=== PATIENT | male | born 1960 | race Hispanic/Latino ===

== ENCOUNTER 2019-08-21 17:14 | Outpatient (CLI) | payer OTHER, SELFPAY ==
[2019-08-21 17:59] LABS: Cholesterol 106 mg/dL (0-200); HDL Direct 36 mg/dL; Triglycerides 103 mg/dL (<150)
[2019-08-21 18:10] LABS: LDL Cholesterol Direct 53 mg/dL
== END 2019-08-21 17:15 | disposition home or self-care (01) ==
PROVIDERS: PCP Family Medicine; Visit Provider Internal Medicine
DX: I25.118 Atherosclerotic heart disease of native coronary artery with other forms of angina pectoris (principal)
CPT/HCPCS: 36415; 80061

== ENCOUNTER 2020-04-11 10:41 | Outpatient (CLI) | payer OTHER, SELFPAY ==
[2020-04-11 11:34] LABS: Basophils Absolute Auto 0.1 K/mm3 (0.0-0.1); Basophils Percent Auto 0.7 % (0.2-1.2); Eosinophils Absolute Auto 0.1 K/mm3 (0-0.3); Eosinophils Percent Auto 0.8 % (0-4.4); Hematocrit 49.9 % (42.0-52.0); Hemoglobin 17.3 g/dL (14.0-18.0); Immature Granulocyte Absolute 0.06 K/mm3 (0.00-0.031); Immature Granulocyte Percent A 0.7 % (0-0.5); Lymphocytes Percent Auto 24.1 % (18.3-44.2); Mean Corpuscular HGB Conc 34.7 g/dl (32-36); Mean Corpuscular Hemoglobin 31.8 pg (26-34); Mean Corpuscular Volume 91.7 fl (80-100); Mean Platelet Volume 10.3 fl (7.4-10.4); Monocytes Absolute Auto 0.7 K/mm3 (0.1-0.6); Monocytes Percent Auto 7.6 % (2.6-8.5); Neutrophils Absolute Auto 5.8 K/mm3 (1.3-6.7); Neutrophils Percent Auto 66.1 % (45.5-73.1); Platelet Count Result 238 k/mm3 (150-375); Red Blood Count 5.44 M/mm3 (4.6-6.20); Red Cell Distribution Width 11.8 % (11.5-14.5); White Blood Count 8.7 K/mm3 (4.5-10.0)
[2020-04-11 11:50] LABS: Alanine Aminotransferase 35 U/L (4-50); Albumin Level 4.6 g/dL (3.5-5.1); Alkaline Phosphatase 95 U/L (38-126); Anion Gap 9 mmol/L (8-16); Aspartate Amino Transferase 31 U/L (17-59); Bilirubin,Total 0.7 mg/dL (0.2-1.3); Blood Urea Nitrogen 13 mg/dL (9-20); Calcium 9.3 mg/dL (8.4-10.2); Carbon Dioxide 28 mmol/L (22-30); Chloride 100 mmol/L (98-107); Estimated Glomerular Filt Rate > 60; Glucose 344 mg/dL (75-110); Potassium 4.2 mmol/L (3.4-5.0); Sodium 137 mmol/L (137-145)
[2020-04-11 11:51] LABS: Hemoglobin A1C 12.6 % (<5.7)
== END 2020-04-11 10:42 | disposition home or self-care (01) ==
PROVIDERS: PCP Family Medicine; Visit Provider Physician Assistant
DX: I10 Essential (primary) hypertension (principal); E11.65 Type 2 diabetes mellitus with hyperglycemia; Z79.4 Long term (current) use of insulin; R53.83 Other fatigue
CPT/HCPCS: 36415; 80053; 83036; 84443; 85025

== ENCOUNTER 2020-09-06 12:30 | Outpatient (CLI) | payer OTHER, SELFPAY ==
[2020-09-06 13:16] LABS: Anion Gap 13 mmol/L (8-16); Blood Urea Nitrogen 8 mg/dL (9-20); Calcium 8.9 mg/dL (8.4-10.2); Carbon Dioxide 21 mmol/L (22-30); Chloride 100 mmol/L (98-107); Estimated Glomerular Filt Rate > 60; Glucose 480 mg/dL (75-110); Potassium 3.4 mmol/L (3.4-5.0); Sodium 134 mmol/L (137-145)
== END 2020-09-06 12:31 | disposition home or self-care (01) ==
PROVIDERS: PCP Family Medicine
DX: E11.59 Type 2 diabetes mellitus with other circulatory complications (principal); I10 Essential (primary) hypertension
CPT/HCPCS: 36415; 80048

== ENCOUNTER 2021-04-11 16:08 | Outpatient (CLI) | payer OTHER, SELFPAY ==
[2021-04-11 16:51] LABS: Basophils Absolute Auto 0.1 K/mm3 (0.0-0.1); Basophils Percent Auto 0.9 % (0.2-1.2); Eosinophils Absolute Auto 0.1 K/mm3 (0-0.3); Eosinophils Percent Auto 1.5 % (0-4.4); Hematocrit 41.4 % (42.0-52.0); Hemoglobin 14.1 g/dL (14.0-18.0); Immature Granulocyte Absolute 0.07 K/mm3 (0.00-0.031); Immature Granulocyte Percent A 0.9 % (0-0.5); Lymphocytes Absolute Auto 2.42 K/mm3 (0.9-3.2); Lymphocytes Percent Auto 30.2 % (18.3-44.2); Mean Corpuscular HGB Conc 34.1 g/dl (32-36); Mean Corpuscular Hemoglobin 32.2 pg (26-34); Mean Corpuscular Volume 94.5 fl (80-100); Mean Platelet Volume 9.9 fl (7.4-10.4); Monocytes Absolute Auto 0.6 K/mm3 (0.1-0.6); Neutrophils Absolute Auto 4.7 K/mm3 (1.3-6.7); Neutrophils Percent Auto 58.5 % (45.5-73.1); Platelet Count Result 333 k/mm3 (150-375); Red Blood Count 4.38 M/mm3 (4.6-6.20); Red Cell Distribution Width 12.3 % (11.5-14.5)
[2021-04-11 16:55] LABS: Add Urine Microscopic? YES; Appearance Urine Clear (Clear); Bilirubin Urine Negative (Negative); Blood Urine Negative (Negative); Color Urine Colorless (Yellow); Glucose Urine UA 3+ mg/dL (Negative); Ketones Urine Negative (Negative); Leukocyte Esterase Ur Negative LEU/UL (Negative); Nitrate Urine Negative (Negative); Protein Urine Negative (Negative); RBC Urine 0-2 /hpf (0-2); Specific Grav Ur 1.035 (1.001-1.035); Urobilinogen Urine Negative mg/dL (<2.0); WBC Urine 0-3 /hpf
[2021-04-11 17:05] LABS: Alanine Aminotransferase 24 U/L (4-50); Albumin Level 4.2 g/dL (3.5-5.1); Alkaline Phosphatase 104 U/L (38-126); Anion Gap 9 mmol/L (8-16); Aspartate Amino Transferase 30 U/L (17-59); Bilirubin,Total 0.5 mg/dL (0.2-1.3); Blood Urea Nitrogen 17 mg/dL (9-20); Calcium 9.2 mg/dL (8.4-10.2); Carbon Dioxide 22 mmol/L (22-30); Chloride 104 mmol/L (98-107); Estimated Glomerular Filt Rate > 60; Glucose 313 mg/dL (65-110); Potassium 3.8 mmol/L (3.4-5.0); Sodium 135 mmol/L (137-145)
[2021-04-11 17:18] LABS: Creatinine Urine 29.2 mg/dL
[2021-04-11 17:23] LABS: MALB Creatinine Ratio 34.9 mg/g (0-30); Microalbumin Urine Random 10.2 mg/L (0-16.7)
[2021-04-11 19:23] LABS: Hemoglobin A1C > 14.0 % (<5.7)
== END 2021-04-11 16:09 | disposition home or self-care (01) ==
LOC: ANHLAB 16:12
PROVIDERS: PCP Family Medicine; Visit Provider Family Medicine
DX: E03.9 Hypothyroidism, unspecified (principal); I10 Essential (primary) hypertension; E11.9 Type 2 diabetes mellitus without complications; R10.9 Unspecified abdominal pain
CPT/HCPCS: 36415; 80053; 81001; 82043; 83036; 84443; 85025

== ENCOUNTER 2024-04-30 10:15 | Emergency (ER) | payer OTHER, SELFPAY ==
[2024-04-30] VITALS (9 sets, daily range): BP systolic 123–163; BP diastolic 56–93; PULSE 81–105; RESP 16–21; TEMP 36.4; O2SAT 93–100
--- NOTE | ~2024-04-30 | CT_ITS ---
EXAMINATION: CTA abd aorta runoff DATE: 04/30/2024 12:54 INDICATION: Peripheral arterial disease. TECHNIQUE: Computed tomographic angiography (CTA) of the abdominal, pelvis, and both lower extremitie s was performed with 150 mL Omnipaque-350 intravenous contrast. Automated exposure control and iterat elyse reconstruction technique were employed. The dose-length product was 634.19 mGy-cm. Maximum intens ity projection 3D-reconstructions of the arteries were created by the technologist on a separate work station. COMPARISON: CTA 10/16/16 FINDINGS: ABDOMINAL AORTA AND ITS BRANCHES: Aortic atherosclerosis is noted. There is moderate stenosis of celiac axis. There is no significant s tenosis of superior mesenteric artery or the renal arteries. There is total occlusion of proximal inf erior mesenteric artery. PELVIC VASCULATURE: There is no significant stenosis of right common iliac artery. There is moderate stenosis of right in ternal iliac artery and mild stenosis of external iliac artery. There is no significant stenosis of l eft common iliac artery. There is severe stenosis of proximal left internal iliac artery. There is mo derate stenosis of proximal left external iliac artery. RIGHT LOWER EXTREMITY VASCULATURE: There is severe stenosis of right common femoral artery and mild stenosis of the profunda femoral art simone. There is total occlusion of superficial femoral artery including multiple occluded stents. There is reconstitution of flow in above-knee popliteal artery which demonstrates mild stenosis. There is no significant stenosis of the tibioperoneal trunk, peroneal artery, or anterior or posterior tibial arteries. LEFT LOWER EXTREMITY VASCULATURE: There is moderate stenosis of left common femoral artery and mild stenosis of the profunda femoral ar chelsey. There is total occlusion of superficial femoral artery with reconstitution of flow in above-kne e popliteal artery, which demonstrates mild stenosis. There is no significant stenosis of the tibiope roneal trunk, peroneal artery, or anterior or posterior tibial arteries. ADDITIONAL FINDINGS: The visualized portions of lung bases demonstrate mild atelectasis. No pleural effusion. Cardiomegaly is noted. No pericardial effusion. Median sternotomy wires are noted. The liver, gallbladder, spleen , pancreas, adrenal glands, and right kidney are normal. There is focal cortical thinning of left kid jose miguel. There are no dilated loops of bowel. The appendix is normal. There are no pathologically enlarge d lymph nodes. There is no free intraperitoneal fluid. There is mild lumbar spondylosis. IMPRESSION: 1. 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 No significan t stenosis of superior mesenteric artery. 2. Severe stenosis of right common femoral artery. 3. Total occlusion of right superficial femoral artery. 4. Moderate stenosis of proximal left internal iliac artery. 5. Moderate stenosis of left common femoral artery. 6. Total occlusion of left superficial femoral artery. Reviewed, dictated and finalized at location A. [facility] IMPRESSION: 1. 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 No significant stenosis of superior mesenteric artery. 2. Severe stenosis of right common femoral artery. 3. Total occlusion of right superficial femoral artery. 4. Moderate stenosis of proximal left internal iliac artery. 5. Moderate stenosis of left common femoral artery. 6. Total occlusion of left superficial femoral artery.
--- OUTSIDE RECORDS SUMMARY | 2024-04-30 10:31 | XMS_ITS | Encounter Summary ---
Author Organization [facility] Facility Care Team Providers Care Cabinet Professional Name Role Phone No, Physician Primary Care Provider [phone] Oscar Pacheco MD Unavailable [phone] Chanell Paula MD Primary Care Provider Encounter Details Date Type Department Care Team (Latest Contact Info) Description 06/10/2017 Orders Only [facility]INCON[facility] ProviderTodd MD [address] [place] [id number] Social History Tobacco Use Types Packs/Day Years Used Date Smoking Tobacco: Never Assessed Alcohol Use Standard Drinks/Week Comments Yes 0 (1 standard drink = 0.6 oz pur e alcohol) Sex and Gender Information Value Date Recorded Sex Assigned at Not on file 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 Historical Provider Final Res ult documented in this encounter Visit Diagnoses Not on filedocumented in this encounter Care Teams Cabinet Professional Relationship Specialty Start Date End Date No, Physician PCP - General 07/23/17 12/15/17 Chanell Paula MD [address] [facility] [address] [place] [address] PCP - General Family Medicine 12/16/17 Oscar Pacheco MD Consulting Physician Cardiology 12/16/17 documented as of this encounter
--- OUTSIDE RECORDS SUMMARY | 2024-04-30 10:31 | XMS_ITS | Encounter Summary ---
Author Organization [facility] Facility Care Team Providers Care Moisture Meter Operator Name Role Phone No, Physician Primary Care Provider [phone] Oscar Pacheco MD Unavailable [phone] Chanell Paula MD Primary Care Provider Encounter Details Date Type Department Care Team (Latest Contact Info) Description 10/06/2015 Orders Only [facility] CLINCONV ProviderTodd MD [address] [place] [address] Social History Tobacco Use Types Packs/Day Years Used Date Smoking Tobacco: Never Assessed Alcohol Use Standard Drinks/Week Comments Yes 0 (1 standard drink = 0.6 oz pur e alcohol) Sex and Gender Information Value Date Recorded Sex Assigned at Not on file 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 Historical Provider Final Res ult documented in this encounter Visit Diagnoses Not on filedocumented in this encounter Care Teams Moisture Meter Operator Relationship Specialty Start Date End Date No, Physician PCP - General 07/23/17 12/15/17 Chanell Paula MD [address] [facility] [address] [place] [address] PCP - General Family Medicine 12/16/17 Oscar Pacheco MD Consulting Physician Cardiology 12/16/17 documented as of this encounter
--- OUTSIDE RECORDS SUMMARY | 2024-04-30 10:31 | XMS_ITS | Encounter Summary ---
Author Organization [facility] Address [facility] [place] [address] Care Team Providers Care Storage Specialist Name Role Phone Nakita Johnston MD Primary Care Provider [phone] Reason for Referral * Surgical (Routine) - Closed Specialty Diagnoses / Procedures Referred By Contac t Referred To Contact Diagnoses PVD (peripheral vascular disease) ([facility]) Procedures Case request operating room: ENDARTERECTOMY FEMORAL ARTERY (right leg) Yash Costello MD [facility]. [facility] [address] [place] [address] Phone: tel: fax: Referral ID Status Reason Start Date Expiration Date Visits Re quested Visits Authorized [id number] Closed 11/26/2022 11/27/2023 1 1 Encounter Details Date Type Department Care Team (Late st Contact Info) Description 11/26/2022 Prep for Procedure [facility], [facility] [address] [place], [place] [id number] Yash Costello MD [facility]. [facility] [address] [place] [address] Social History Tobacco Use Types Packs/Day Years Used Date Smoking Tobacco: Former Cigarettes Q uit: 2017 Smokeless Tobacco: Never Alcohol Use Standard Drinks/Week Comments Not Currently 0 (1 standard drink = 0.6 oz pur e alcohol) Humiliation, Afraid, Rape, and Kick questionnair e Answer Date Recorded Within the last year, have y ou been afraid of your partner or ex-partner? No 07/26/2022 Within the last year, have y ou been humiliated or emotionally abused in other ways by your partner or ex-partner? No Within the last year, have y ou been kicked, hit, slapped, or otherwise physically hurt by your partner or ex-partner? No 07/26/2022 Within the last year, have y ou been raped or forced to have any kind of sexual activity by your partner or ex-partner? No 07/26/2022 Overall Financial Resource Strain (CARDIA) Answe r Date Recorded How hard is it for you to pa y for the very basics like food, housing, medical care, and heating? Not hard at all 07/26/2022 Hunger Vital Sign Answer Date Recorded Within the past 12 months, y ou worried that your food would run out before you got the money to buy more. Never true 07/27/19 23 Within the past 12 months, t he food you bought just didn't last and you didn't have money to get more. Never true 07/26/2022 PRAPARE - Transportation Answer Date Re corded In the past 12 months, has l ack of transportation kept you from medical appointments or from getting medications? No 07/09 In the past 12 months, has l ack of transportation kept you from meetings, work, or from getting things needed for daily living? No 07/26/2022 Housing Stability Vital Sign Answer Jose e Recorded In the last 12 months, was t here a time when you were not able to pay the mortgage or rent on time? No 07/26/2022 In the last 12 months, how many places have you lived? 1 07/26/2022 In the last 12 months, was t here a time when you did not have a steady place to sleep or slept in a fpc (including now)? No 07/26/2022 Sex and Gender Information Value Date Recorded Sex Assigned at Not on file Legal Sex Male 9:57 AM CDT Gender Identity Not on file Sexual Orientation Not on file documented as of this encounter Functional Status * Are you deaf or do you have serious difficulty hearing Answer Date of Assessment Author Status No 07/26/2022 6:08 PM CDT Gabbie Bowen R N Active * Are you blind or do you have serious difficulty seeing, even when wearing glasses? Answer Date of Assessment Author Status No 07/26/2022 6:08 PM CDT Gabbie Bowen R N Active * Do you have serious difficulty walking or climbing stairs? Answer Date of Assessment Author Status No 07/26/2022 6:08 PM CDT Gabbie Bowen R N Active * Do you have difficulty dressing or bathing? Answer Date of Assessment Author Status No 07/26/2022 6:08 PM CDT Gabbie Bowen R N Active * Because of a physical, mental, or emotional condition, do you have difficulty doing errands alone such as visiting a doctor's office or shopping? Answer Date of Assessment Author Status No 07/26/2022 6:08 PM CDT Gabbie Bowen R N Active documented as of this encounter Mental Status * Because of a physical, mental, or emotional condition, do you have serious difficulty concentrating, remembering, or making decisions? Answer Entry Date Author Status No 07/26/2022 6:08 PM CDT Gabbie Bowen R N Active documented in this encounter Plan of Treatment Scheduled Orders Name Type Priority Associated Diagnoses Order Schedule Case request operating room: ENDARTERECTOMY FEMORAL ARTERY (right leg) Case Request Routine PVD (peripheral vascular disease) Once for 1 Occurrences starting 11/26/2022 until 11/26/2022 documented as of this encounter Goals Goal Patient Goal Type Associated Problems Recent Progress Patient-Stated? Author Patient will return to prior living situation and remain independent in ADLs upon discharge from hospital Lifestyle No Flores Arguelles RN documented as of this encounter Results * TYPE & SCREEN (12/14/2022 2:57 PM CDT) ABO/RH O POSITIVE 12/14/2022 4:22 PM CDT [facility] ANTIBODY SCREEN NEGATIVE 12/14/2022 4:22 PM CDT [facility] SAMPLE EXPIRATION 12/27/2022,2 359 12/24/2022 7:33 AM CDT [facility] BB COMMENT NO HISTORY OF TRANSFUSIONS , OR ANTIBODIES, NEW SPECIMEN NOT NEEDED 12/24/2022 7:33 AM CDT [facility] 12/14/2022 2:57 PM CDT Yash Costello MD BLOOD BANK TEST ORDERABLES Final Result [facility] [address] [place] [address], * (ABNORMAL) COMPREHENSIVE METABOLIC PANEL (12/14/2022 2:57 PM CDT) GLUCOSE 289(H) 70 - 99 MG/DL 12/14/2022 3:42 PM CDT [facility] BUN 16 7 - 18 MG/DL 12/14/2022 3:42 PM CDT [facility] CREATININE S/P/B 1.00 0.7 - 1.3 MG/DL 12/14/2022 3:42 PM CDT [facility] SODIUM S/P/B 135(L) 136 - 145 MMOL/L 12/14/2022 3:42 PM CDT [facility] POTASSIUM S/P/B 3.6 3.5 - 5.1 MMOL/L 12/14/2022 3:42 PM CDT [facility] CHLORIDE S/P/B 104 100 - 108 MMOL/L 12/14/2022 3:42 PM CDT [facility] CO2 25.6 21 - 32 MMOL/L 12/14/2022 3:42 PM CDT [facility] CALCIUM S/P/B 8.4(L) 8.5 - 10.1 MG/DL 12/14/2022 3:42 PM T [facility] BILIRUBIN TOTAL S/P/B 1.4(H) 0.2 - 1.2 MG/DL 12/14/2022 3:42 PM [facility] Comment: THIS ASSAY IS NOT RECOMMENDED FOR PATIENTS UNDERGOING TREATMENT WITH ELTROMBOPAG DUE TO THE POTENTIAL FOR FALSELY ELEVATED RESULTS. TOTAL PROTEIN S/P/B 6.9 6.4 - 8.2 G/DL 12/14/2022 3:42 PM T [facility] ALBUMIN S/P/B 3.6 3.4 - 5.0 G/DL 12/14/2022 3:42 PM T [facility] AST 18 15 - 37 U/L 12/14/2022 3:42 PM [facility] ALT 27 16 - 60 U/L 12/14/2022 3:42 PM [facility] ALKALINE PHOSPHATASE S/P/B 71 50 - 136 U/L 12/14/2022 3:42 PM [facility] ANION GAP 5.4 5 - 15 MMOL/L 12/14/2022 3:42 PM [facility] BUN CREATININE RATIO 16.0 6 - 26 12/14/2022 3:42 PM [facility] A/G RATIO 1.1 1.0 - 2.0 RATIO 12/14/2022 3:42 PM [facility] GFR ESTIMATE 85(L) >90 ML/MIN/1.7 3 M2 12/14/2022 3:42 PM [facility] Comment: NOTE: eGFR is not calculated for patients <18 years of age. This is an estimated GFR calculation using the new CKD EPI creatinine equation without race and so does not require a correction factor for race. This estimated GFR should not be used for calculating drug doses. 12/14/2022 2:57 PM CDT Yash Costello MD LABORATORY Final Result [facility] [address] [place] [address], [place] [phone] * PROTIME/INR, VENOUS (12/14/2022 2:57 PM CDT) PROTIME 11.2 10.2 - 12.9 SEC 12/14/2022 3:45 PM CDT [facility] INR 1.0 12/14/2022 3:45 PM CDT [facility] Comment: Recommended INR Therapeutic Goals: 2.0-3.0 Routine Therapy 2.5-3.5 Mechanical Prosthetic Valves (High Risk) 12/14/2022 2:57 PM CDT Yash Costello MD LABORATORY Final Result Performing Organization Address City/[facility]/ZIP Co de Phone Number [facility] [address] [place] [address], [place] [phone] * CBC W/DIFF AUTOMATED (12/14/2022 2:57 PM CDT) WBC 6.9 4.5 - 11.0 x10'3/uL 12/14/2022 3:22 PM CDT [facility] RBC 5.00 4.70 - 6.10 x10'6/uL 12/14/2022 3:22 PM CDT [facility] HGB 15.5 14.0 - 18.0 G/DL 12/14/2022 3:22 PM CDT [facility] HCT 46.1 43.0 - 54.0 % 12/14/2022 3:22 PM CDT [facility] MCV 92.2 80.0 - 94.0 FL 12/14/2022 3:22 PM CDT [facility] MCH 31.0 27.0 - 31.0 PG 12/14/2022 3:22 PM CDT [facility] MCHC 33.6 32.0 - 36.0 G/DL 12/14/2022 3:22 PM CDT [facility] RDW 12.5 11.5 - 14.5 % 12/14/2022 3:22 PM CDT [facility] PLT 231 130 - 400 x10'3/uL 12/14/2022 3:22 PM CDT [facility] MPV 10.0 9.3 - 12.2 FL 12/14/2022 3:22 PM CDT [facility] DIFFERENTIAL TYPE AUTOMATED DIFFERENTIAL 12/14/2022 3:22 PM CDT [facility] NEUTROPHILS % 67.4 % 12/14/2022 3:22 PM CDT [facility] LYMPHOCYTES % 22.7 % 12/14/2022 3:22 PM CDT [facility] MONOCYTES % 6.3 % 12/14/2022 3:22 PM CDT [facility] EOSINOPHILS 2.5 % 12/14/2022 3:22 PM CDT [facility] BASOPHILS 0.7 % 12/14/2022 3:22 PM CDT [facility] IMMATURE GRANS % 0.4 % 12/15/19 3:22 PM CDT [facility] ABS. NEUTROPHILS TOTAL 4.67 1.80 - 7.70 x10'3/uL 12/14/2022 3:22 PM CDT [facility] ABS. LYMPHOCYTES 1.57 1.00 - 4.80 x10'3/uL 12/14/2022 3:22 PM CDT [facility] ABS. MONOCYTES 0.44 0.30 - 0.82 x10'3/uL 12/14/2022 3:22 PM CDT [facility] ABS. EOSINOPHILS 0.17 0.04 - 0.54 x10'3/uL 12/14/2022 3:22 PM CDT [facility] ABS. BASOPHILS 0.05 0.01 - 0.08 x10'3/uL 12/14/2022 3:22 PM CDT [facility] ABS. IMMATURE GRANULOCYTES 0.03 0.00 - 0.49 x10'3/uL 12/14/2022 3:22 PM CDT [facility] 12/14/2022 2:57 PM CDT us Yash Costello MD LABORATORY Final Result [facility] [address] [place] [address], [place] [phone] * MRSA SCREENING (12/14/2022 2:56 PM CDT) SPEC DESCRIPTION NASAL 12/14/2022 2:32 PM CDT [facility] SPECIAL REQUESTS NO SPECIAL REQUEST 12/14/2022 2:32 PM CDT [facility] CULTURE RESULT NO METHICILLIN RESISTANT STAPHYLOCOCCUS AUREUS ISOLATED 12/15/2022 1:22 PM CDT [facility] SPECIMEN FROM INTERNAL NOSE / Unknown 12/14/2022 2:56 PM CDT 12/14/2022 2:57 PM CDT us Yash Costello MD MICROBIOLOGY - GENERAL ORDERABLE S Final Result [facility] [address] [place] [address], documented in this encounter Visit Diagnoses Diagnosis PVD (peripheral vascular disease) (CMS/HCC)- Primary Peripheral vascular disease, unspecified documented in this encounter Care Teams Storage Specialist Relationship Specialty Start Date End Date Nakita Johnston MD [address] [place] [address] [place] [address] PCP - General FAMILY PRACTICE 07/07/21 documented as of this encounter
--- OUTSIDE RECORDS SUMMARY | 2024-04-30 10:31 | XMS_ITS | Referral Summary ---
Author Organization [facility] Address [facility] [place] [address] Care Team Providers Care Near East Archeology Professor Name Role Phone Oscar Pacheco MD Unavailable [phone] Chanell Paula MD Primary Care Provider Allergies No known active allergies Medications rosuvastatin (CRESTOR) 40 mg tablet Take 1 tablet (40 mg total) by mouth nightly. 30 tablet 1 07/26/2017 Active aspirin 81 mg tablet Take 1 tablet (81 mg total) by mouth daily. 30 tablet 2 07/27/2017 Active JENTADUETO XR 5-1,000 mg tablet, IR & ER, biphasic 24hr TAKE 1 TABLET BY ORAL ROUTE EVERY DAY WITH A MEAL 0 08/08/2018 Active Jardiance 25 mg tablet Take 25 mg by mouth daily 05/23/2020 Active insulin lispro (HumaLOG, ADMELOG) 100 unit/mL vial for injection Inject under the skin 3 (three) times a day before meals Active alirocumab 75 mg/mL pen injector Inject 75 mg under the skin every 14 (fourteen) days 2 Syringe 11 06/16/2020 Active metoprolol XL (TOPROL-XL) 100 mg 24 hr tablet TAKE 1 TABLET(100 MG) BY MOUTH DAILY 90 tablet 2 08/29/2020 Active lisinopriL (PRINIVIL,ZESTRI L) 40 mg tablet TAKE 1 TABLET(40 MG) BY MOUTH DAILY 90 tablet 2 08/29/2020 Active Active Problems Problem Noted Date Diagnosed Date Coronary artery disease of n ative artery of [place] heart with stable angina pectoris 08/19/2017 Overview (08/19/2017): Coronary Artery Disease Type 2 diabetes mellitus wit h circulatory disorder, without long-term current use of insulin 08/19/2017 Hyperlipidemia due to type 2 diabetes mellitus 0 08/19/2017 Ischemic cardiomyopathy 08/19/2017 Hypertension associated with diabetes 08/19/2017 PAD (peripheral artery disease) 08/19/2017 History of myocardial infarction 06/17/2017 Social History Tobacco Use Types Packs/Day Years Used Date Smoking Tobacco: Never Smokeless Tobacco: Never Alcohol Use Standard Drinks/Week Comments Yes 0 (1 standard drink = 0.6 oz pur e alcohol) Sex and Gender Information Value Date Recorded Sex Assigned at Not on file 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 Gender Identity Not on file Sexual Orientation Not on file Last Filed Vital Signs Vital Sign Reading Time Taken Comments Blood Pressure 128/62 06/06/2020 2:10 PM CDT Pulse 71 06/06/2020 2:10 PM CDT Temperature 36.4 C (97.5 F) 07/26/2017 8:40 AM CDT Respiratory Rate 18 07/26/2017 8:40 AM CDT Oxygen Saturation 95% 06/06/2020 2:10 PM CDT Inhaled Oxygen Concentration - - Weight 83.6 kg (184 lb 3.2 oz) 06/06/2020 2:10 P M CDT Height 167.6 cm (5' 6 ) 06/06/2020 2:10 PM CDT Body Mass Index 29.73 06/06/2020 2:10 PM CDT Plan of Treatment Not on file Medical Devices Implanted Type Area Senior Quality Manager Device Identifier Shelf Expiration Date Model / Serial / Lot System Coronary Stent Resolute [place] Pebax [employer]x Zotarolimus Eluting Burt L38 Mm L140 Cm Od.91-.69 Mm Id2.5 Mm Small Vessel Rapid Exchange Radiopaque 1 Access Port Balloon Accepts .014 In Guidewire 5 Fr Guide Catheter - [id number] Implanted:Qty: 1 on 07/25/2017 by Cameron Torrez MD at [facility] [employer] X 04/26/2019 [id number] X / / [id number] System Coronary Stent Resolute [place] Pebax Biolinx Zotarolimus Eluting Burt L30 Mm L140 Cm Od.91-.69 Mm Id2.25 Mm Small Vessel Rapid Exchange Radiopaque 1 Access Port Balloon Accepts .014 In Guidewire 5 Fr Guide Catheter - [id number] Implanted:Qty: 1 on 07/25/2017 by Cameron Torrez MD at [facility] [employer] X 12/18/2019 [id number] X / / [id number] System Coronary Stent Resolute [place] Pebax Biolinx Zotarolimus Eluting Burt L15 Mm L140 Cm Od.91-.69 Mm Id2.75 Mm Medium Vessel Rapid Exchange Radiopaque 1 Access Port Balloon Accepts .014 In Guidewire 5 Fr Guide Catheter - [id number] Implanted:Qty: 1 on 07/25/2017 by Cameron Torrez MD at [facility] [employer] X 02/04/2019 [id number] X / / [id number] System Coronary Stent Resolute [place] Pebax Bi[employer]x Zotarolimus Eluting Burt L15 Mm L140 Cm Od.91-.69 Mm Id2.5 Mm Small Vessel Rapid Exchange Radiopaque 1 Access Port Balloon Accepts .014 In Guidewire 5 Fr Guide Catheter - [id number] Implanted:Qty: 1 on 07/25/2017 by Cameron Torrez MD at [facility] [employer] X 03/22/2019 [id number] X / / [id number] Procedures Procedure Name Priority Date/Time Associated Diagnosis Comments POCT LIPID PANEL Routine 06/06/2020 2:38 PM CDT Coronary artery disease of [place] artery of [place] heart with stable angina pectoris (CMS/HCC) EGFR Routine 09/01/2018 11:14 AM CDT PVC (premature ventricular contraction) from Last 3 Months or Most Recently Relevant to Health Maintenance Results * POCT lipid panel (06/06/2020 2:38 PM CDT) [facility] Signature Cholesterol, POC 164 mg/dL HDL, POC 32 mg/dL Triglycerides, POC 238 mg/dL LDL Cholesterol POC 84 mg/dL Chol/HDL Ratio, POC 5.1 Non-HDL Cholesterol, POC 132 mg/dL Cholesterol Total, POC 164 mg/dL Capillary blood 06/06/2020 2 :38 PM CDT Oscar Pacheco MD POINT OF CARE TEST ORDERAB LES Final Result * eGFR (09/01/2018 11:14 AM CDT) eGFR 99 mL/min/1.7 3 m2 [facility] Comment: Interpretive Data Reference Interval Normal >/= 90 mL/min/1.73m2 Mildly decreased* 60 - 89 mL/min/1.73m2 Mildly to moderately decreased 45 - 59 mL/min/1.73m2 Moderately to severely decreased 30 - 44 mL/min/1.73m2 Severely decreased 15 - 29 mL/min/1.73m2 Kidney Failure < 15 mL/min/1.73m2 *Relative to young adult level If -[place] multiply value by 1.16. Estimated glomerular filtration rate is determined by the CKD-EPI equation recommended by the National Kidney Foundation (KDIGO 2012 Clinical Practice Guideline for the Evaluation and Management of Chronic Kidney Disease. Kidney Intnl Suppl Mar 2012;3:1). The CKD-EPI equation should not be used for patients with unstable renal function and has not been validated in children and those over 70. Current interpretive data was last reviewed 2016. Blood specimen (specimen) 09/01/2018 11:14 AM CDT 09/01/2018 11:26 AM CDT Oscar Pacheco MD LAB BLOOD ORDERABLES Final Result [facility] [address] [place] [address] from Last 3 Months or Most Recently Relevant to Health Maintenance Insurance [facility]PPO Address: [address] [address] [address] [facility] H[facility]/PPO Address: [facility] [address] [facility]PP[facility] Address: [address] [facility] HMO/PPO Address: [facility] [address] [place] [address] Advance Directives For more information, please contact: [phone] Documents on File Type Date Recorded Patient Body Line Finisher Expl anation ADVANCE DIRECTIVE 08/19/2017 1:44 PM Power of Driveway Sealer ADVANCE DIRECTIVE 06/25/2017 12:00 AM REBEKA R OF PLASTIC MIXER FINANCIAL/MEDICAL * Full Code (Latest Code Status on File) Date Activated Date Inactivated Comments 07/24/2017 2:16 AM 07/26/2017 3:45 PM Care Teams Near East Archeology Professor Relationship Specialty Start Date End Date Chanell Paula MD [address] [facility] [address] [place] [address] PCP - General Family Medicine 12/16/17 Oscar Pacheco MD Consulting Physician Cardiology 12/16/17
--- OUTSIDE RECORDS SUMMARY | 2024-04-30 10:31 | XMS_ITS | Clinical Summary ---
[facility] Address [facility] [place] [address] Care Team Providers Care Log Yard Derrick Operator Name Role Phone Oscar Pacheco MD Unavailable [phone] Chanell Paula MD Primary Care Provider Allergies [...] artery disease of n ative artery of [place] heart with stable angina pectoris 08/19/2017 Overview (08/19/2017): Coronary Artery Disease Type 2 diabetes mellitus wit h circulatory disorder, without long-term current use of insulin 08/19/2017 Hyperlipidemia due to type 2 diabetes mellitus 0 08/19/2017 Ischemic cardiomyopathy 08/19/2017 Hypertension associated with diabetes 08/19/2017 PAD (peripheral artery disease) 08/19/2017 History of myocardial infarction 06/17/2017 Surgical History Surgery Date Site/Laterality Comments CORONARY ARTERY BYPASS GRAFT 03/11/2002 - 03/10/2003 Coronary Artery Bypass Graft CARDIAC STENT PLACEMENT Medical History Medical History Date Comments Chronic coronary artery disease Coronary Artery Disease DMII (diabetes mellitus, type 2) (HCC) High cholesterol Family History Medical History Relation Name Comments Diabetes Father Heart disease Father Heart disease Mother Relation Name Status Comments Father Mother Social History Tobacco Use Types Packs/Day Years Used Date Smoking Tobacco: Never Smokeless Tobacco: Never Alcohol Use Standard Drinks/Week Comments Yes 0 (1 standard drink = 0.6 oz pur e alcohol) Sex and Gender Information Value Date Recorded Sex Assigned at Not on file Legal Sex Male 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 Gender Identity Not on file Sexual Orientation Not on file Obstetrics History Last Filed Vital Signs Vital Sign Reading [...] 06/06/2020 2:10 PM CDT Plan of Treatment Health Maintenance Due Date Last Done Comments Albumin Creatinine Ratio, Urine 1959 Colon Cancer Screening-Colonoscopy 1959 Depression Screening 1959 Hemoglobin A1C 1959 Hepatitis C Screening 1959 Prostate Cancer Screening-PSA 1959 Dilated Eye Exam 1959 Foot Exam 1959 DTaP/Tdap/Td Vaccine (1 - Tdap) 08/27/1970 Hepatitis B Screening 08/27/1977 Regular Well Visit/Exam 18-64 08/27/1977 Pneumococcal vaccine <65 (1 of 2 - PCV) 08/27/1978 Zoster Vaccine (1 of 2) 08/27/2009 eGFR 09/02/2019 09/01/2018, 10/0 10/2017, 07/26/2017, Additional history exists Lipid Panel 11/08/2022 11/08/2021, 03/2 11/2020, 08/21/2019, Additional history exists Covid-19 Vaccine (3 - 2023-2 5 season) 2023 06/01/2020, 05/12/2020 Influenza Vaccine (#1) 2023 04/08/2016 Medical Devices Implanted Type Area Patient Observation Assistant Device Identifier Shelf Expiration Date Model / Serial / Lot System Coronary Stent Resolute Gianni Pebax Biolinx Zotarolimus Eluting [place] L38 Mm L140 Cm Od.91-.69 Mm Id2.5 Mm Small Vessel Rapid Exchange Radiopaque 1 Access Port Balloon Accepts .014 In Guidewire 5 Fr Guide Catheter - [id number] Implanted:Qty: 1 on 07/25/2017 by Cameron Torrez MD at [facility] [employer] X 04/26/2019 [id number] X / / [id number] System Coronary Stent Resolute [place] Pebax Biolinx Zotarolimus Eluting Linwood L30 Mm L140 Cm Od.91-.69 Mm Id2.25 Mm Small Vessel Rapid Exchange Radiopaque 1 Access Port Balloon Accepts .014 In Guidewire 5 Fr Guide Catheter - [id number] Implanted:Qty: 1 on 07/25/2017 by Cameron Torrez MD at [facility] [employer] X 12/18/2019 [id number] X / / [id number] System Coronary Stent Resolute Gianni Pebax Biolinx Zotarolimus Eluting Linwood L15 Mm L140 Cm Od.91-.69 Mm Id2.75 Mm Medium Vessel Rapid Exchange Radiopaque 1 Access Port Balloon Accepts .014 In Guidewire 5 Fr Guide Catheter - [id number] Implanted:Qty: 1 on 07/25/2017 by Cameron Torrez MD at [facility] [employer] X 02/04/2019 [id number] X / / [id number] System Coronary Stent Resolute [place] Pebax [employer]olinx Zotarolimus Eluting Linwood L15 Mm L140 Cm Od.91-.69 Mm Id2.5 Mm Small Vessel Rapid Exchange Radiopaque 1 Access Port Balloon Accepts .014 In Guidewire 5 Fr Guide Catheter - [id number] Implanted:Qty: 1 on 07/25/2017 by Cameron Torrez MD at [facility] [employer] X 03/22/2019 [id number] X / / [id number] Procedures Procedure Name Priority Date/Time Associated Diagnosis Comments POCT LIPID PANEL Routine 06/06/2020 2:38 PM CDT Coronary artery disease of [place] artery of [place] heart with stable angina pectoris (CMS/HCC) EGFR Routine 09/01/2018 11:14 AM CDT PVC (premature ventricular contraction) from Last 3 Months or Most Recently Relevant to Health Maintenance Results * POCT lipid panel (06/06/2020 2:38 PM CDT) [facility] Cholesterol, POC 164 mg/dL HDL, POC 32 mg/dL Triglycerides, POC 238 mg/dL LDL Cholesterol POC 84 mg/dL Chol/HDL Ratio, POC 5.1 Non-HDL Cholesterol, POC 132 mg/dL Cholesterol Total, POC 164 mg/dL Capillary blood 06/06/2020 2 :38 PM CDT us Oscar Pacheco MD POINT OF CARE TEST ORDERAB LES Final Result * eGFR (09/01/2018 11:14 AM CDT) [facility] eGFR 99 mL/min/1.7 3 m2 [facility] Comment: Interpretive Data Reference Interval Normal >/= 90 mL/min/1.73m2 Mildly decreased* 60 - 89 mL/min/1.73m2 Mildly to moderately decreased 45 - 59 mL/min/1.73m2 Moderately to severely decreased 30 - 44 mL/min/1.73m2 Severely decreased 15 - 29 mL/min/1.73m2 Kidney Failure < 15 mL/min/1.73m2 *Relative to young adult level If -[place]ozamb[place] multiply value by 1.16. Estimated glomerular filtration [...] 11:14 AM CDT 09/01/2018 11:26 AM CDT us Oscar Pacheco MD LAB BLOOD ORDERABLES Final Result Performing Organization Address City/State/[facility] Co de Phone Number [facility] [address] [place] [address] from Last 3 Months or Most Recently Relevant to Health Maintenance Insurance [facility] HMO/PPO Address: [facility] [address] [place] [address] UHC CHOICE PLUS [facility] HMO/PPO Address: [address] [facility] HMO/PPO Address: [address] [place] [id number] [facility] HMO/PPO Address: [address] [address] [place] [address] Advance Directives For more information, please contact: [phone] Documents on File Type Date Recorded Patient Kitchen Assistant Expl anation ADVANCE DIRECTIVE 08/19/2017 1:44 PM Power of Architect Internship ADVANCE DIRECTIVE 06/25/2017 12:00 AM REBEKA R OF EXECUTIVE ASSISTANT FINANCIAL/MEDICAL * Full Code (Latest Code Status on File) Date Activated Date Inactivated Comments 07/24/2017 2:16 AM 07/26/2017 3:45 PM Care Teams Log Yard Derrick Operator Relationship Specialty Start Date End Date Chanell Paula MD [address] [facility] [address] [place] [address] PCP - General Family Medicine 12/16/17 Oscar Pacheco MD Consulting Physician Cardiology 12/16/17
--- OUTSIDE RECORDS SUMMARY | 2024-04-30 10:31 | XMS_ITS | Encounter Summary ---
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 Historical Provider [facility]ON Final Result documented in this encounter Visit Diagnoses Not on filedocumented in this encounter Care Teams Leather Skinner Relationship Specialty Start Date End Date No, Physician PCP - General 07/23/17 12/15/17 Chanell Paula MD [address] [facility] [address] [place] [address] PCP - General Family Medicine 12/16/17 Oscar Pacheco MD Consulting Physician Cardiology 12/16/17 documented as of this encounter
--- OUTSIDE RECORDS SUMMARY | 2024-04-30 10:31 | XMS_ITS | Encounter Summary ---
Author Organization [facility] Address [facility] [place] [address] Care Team Providers Care Property Appraiser Name Role Phone Nakita Johnston MD Primary Care Provider [phone] Encounter Details Date Type Department Care Team (Late st Contact Info) Description 11/14/2021 [facility], [address] [address] Kendall Dooley MA Social History Tobacco Use Types Packs/Day Years [...] on file Sexual Orientation Not on file COVID-19 Exposure Response Date Recorded In the last 10 days, have yo u been in contact with someone who was confirmed or suspected to have Coronavirus/COVID-19? No / Unsure 11/08/2021 9:40 AM CDT documented as of this encounter Plan of Treatment Not on file documented as of this encounter Procedures Procedure Name Priority Date/Time Associated Diagnosis Comments CBC (OUTSIDE LAB) Routine 07/05/2021 BASIC METABOLIC PANEL Routine 07/05/2021 LIPID PANEL Routine 07/05/2021 HEPATIC FUNCTION PANEL Routine 07/05/2021 HEMOGLOBIN, GLYCOSYLATED Routine 07/05/2021 documented in this encounter Results * CBC (OUTSIDE LAB) (07/05/2021) Pathologist [facility] WBC 6.7 HGB 16.7 HCT 50.4 PLT 333 07/05/2021 us Doc [facility] Abstract LAB-OUTSIDE/ABSTRACTED Final Result * HEPATIC FUNCTION PANEL (07/05/2021) Pathologist [facility] ALBUMIN S/P/B 4.5 3.5 - 5.0 ALKALINE PHOSPHATASE S/P/B 113 ALT 29 AST 31 BILIRUBIN DIRECT S/P/B 0.00 BILIRUBIN TOTAL S/P/B 0.60 TOTAL PROTEIN S/P/B 7.8 GLOBULIN 3.3 07/05/2021 us Doc [facility] Abstract LABORATORY Final Result * LIPID PANEL (07/05/2021) Pathologist [facility] CHOLESTEROL 210 HDL 44 TRIGLYCERIDES 311 LDL (CALCULATED) 104 07/05/2021 us Doc [facility] Abstract LABORATORY Final Result * (ABNORMAL) BASIC METABOLIC PANEL (07/05/2021) Pathologist [facility] SODIUM S/P/B 133 POTASSIUM S/P/B 4.4 CO2 23 CHLORIDE S/P/B 98 GLUCOSE 330 mg/dL CALCIUM S/P/B 9.6 BUN 16 CREATININE S/P/B 0.69(A) 0.7 - 1.3 EGFR NON-AFR. AMER. >60 <=90 07/05/2021 us Doc [facility] Abstract LABORATORY Final Result * HEMOGLOBIN, GLYCOSYLATED (07/05/2021) Pathologist [facility] HGB A1C 13.9 % 07/05/2021 us Doc [facility] Abstract LABORATORY Final Result documented in this encounter Visit Diagnoses Not on filedocumented in this encounter Care Teams Property Appraiser Relationship Specialty Start Date End Date Nakita Johnston MD [address] [place] [address] [place] [address] PCP - General FAMILY PRACTICE 07/07/21 documented as of this encounter
--- OUTSIDE RECORDS SUMMARY | 2024-04-30 10:31 | XMS_ITS | Clinical Summary ---
Author Organization [facility] Address [address] [place] [address] Care Team Providers Care Resource Room Teacher Name Role Phone Nakita Johnston MD Primary Care Provider [phone] Allergies No known active allergies Medications JARDIANCE 25 MG tablet Take 1 tablet (25 mg total) by mouth daily. 10/12/2021 Active JENTADUETO XR 5-1000 MG TABLET SR 24 HR Take 1 tablet by mouth daily. 07/07/2021 Active lisinopril (PRINIVIL) 40 MG tablet Take 1 tablet (40 mg total) by mouth daily. 10/23/2021 Active metoprolol succinate ER (TOPROL-XL) 100 MG 24 hr tablet Take 1 tablet (100 mg total) by mouth daily. 04/30/2021 Active rosuvastatin (CRESTOR) 40 MG tablet Take 1 tablet (40 mg total) by mouth nightly at bedtime. 10/12/2021 Active glipiZIDE XL (GLUCOTROL XL) 10 MG 24 hr tablet Take 1 tablet (10 mg total) by mouth daily. 05/22/2022 Active HYDROcodone-viraj taminophen (NORCO) 5-325 MG tabletIndicatio ns:Acute Pain < 7 Day Supply Take 1 tablet by mouth every 6 (six) hours as needed for Pain. Indications: Acute Pain < 7 Day Supply 20 tablet 12/31/2022 Active clopidogrel (PLAVIX) 75 MG tablet Take 1 tablet by mouth once daily 90 tablet 04/03/2023 Active Active Problems Problem Noted Date Diagnosed Date PVD (peripheral vascular disease) 07/26/2022 Hyperlipidemia due to type 2 diabetes mellitus ([facility]) 08/19/2017 Ischemic cardiomyopathy 08/19/2017 History of myocardial infarction 06/17/2017 Peripheral vascular disease Hypertensive disorder Coronary arteriosclerosis Hyperlipidemia Immunizations Name Administration Dates Next Due Influenza Adult (Generic) 04/08/2016 PFIZER COVID-19 (ORIGINAL FO RMULATION, PURPLE CAP) mRNA, LNP-S, PF, 30 MCG/0.3 ML DOSE 06/01/2020,05/12/2020 Family History Medical History Relation Comments Diabetes Brother Diabetes Father Heart Disease Father Hypertension Father Diabetes Sister Relation Status Comments Brother Father Sister Social History Tobacco Use Types Packs/Day Years Used Date Smoking Tobacco: Former Cigarettes Q uit: 2017 Smokeless Tobacco: Never Tobacco Cessation:Counseling Given: Not Answered Alcohol Use Standard Drinks/Week Comments Not Currently 0 (1 standard drink = 0.6 oz pur e alcohol) Humiliation, Afraid, Rape, and Kick questionnair e Answer Date Recorded Within the last year, have y ou been afraid of your partner or ex-partner? Patient declined 12/24/2022 Within the last year, have y ou been humiliated or emotionally abused in other ways by your partner or ex-partner? Patient declined 12/24/2022 Within the last year, have y ou been kicked, hit, slapped, or otherwise physically hurt by your partner or ex-partner? Patient declined 12/24/2022 Within the last year, have y ou been raped or forced to have any kind of sexual activity by your partner or ex-partner? Patient declined 12/24/2022 Social Connection and Isolation Panel [NHANES] A nswer Date Recorded In a typical week, how many times do you talk on the phone with family, friends, or neighbors? Patient declined 12/24/2022 How often do you get togethe r with friends or relatives? Patient declined 12/24/2022 How often do you attend tenriism or yarsanism serv ices? Patient declined 12/24/2022 Do you belong to any clubs o r organizations such as tenriism groups, unions, fraternal or athletic groups, or school groups? Patient declined 12/24/2022 How often do you attend meet ings of the clubs or organizations you belong to? Patient declined 12/24/2022 Are you , , di vorced, , never , or living with a partner? Patient declined 12/24/2022 AUDIT-C Answer Date Recorded Q1: How often do you have a drink containing alc ohol? Patient declined 12/24/2022 Q2: How many drinks containi ng alcohol do you have on a typical day when you are drinking? Patient declined 12/24/2022 Q3: How often do you have si x or more drinks on one occasion? Patient declined 12/24/2022 Overall Financial Resource Strain (CARDIA) Answe r Date Recorded How hard is it for you to pa y for the very basics like food, housing, medical care, and heating? Patient declined 12/24/2022 [facility] - Occupational Stress Questionnaire Answer Date Recorded Do you feel stress - tense, restless, nervous, or anxious, or unable to sleep at night because your mind is troubled all the time - these days? Patient declined 12/24/2022 Exercise Vital Sign Answer Date Recorde d Days of Exercise per Week Not on file 2022 On average, how many minutes do you engage in exercise at this level? Patient declined 12/24/2022 Hunger Vital Sign Answer Date Recorded Within the past 12 months, y ou worried that your food would run out before you got the money to buy more. Patient declined Within the past 12 months, t he food you bought just didn't last and you didn't have money to get more. Patient declined PRAPARE - Transportation Answer Date Re corded In the past 12 months, has l ack of transportation kept you from medical appointments or from getting medications? Patient declined 12/24/2022 In the past 12 months, has l ack of transportation kept you from meetings, work, or from getting things needed for daily living? Patient declined 12/24/2022 Housing Stability Vital Sign Answer Jose e Recorded In the last 12 months, was t here a time when you were not able to pay the mortgage or rent on time? Patient refused 12/25/19 23 In the last 12 months, how many places have you lived? 1 12/24/2022 In the last 12 months, was t here a time when you did not have a steady place to sleep or slept in a chcf (including now)? Patient refused 12/24/2022 Sex and Gender Information Value Date Recorded Sex Assigned at Not on file Legal Sex Male 9:57 AM CDT Gender Identity Not on file Sexual Orientation Not on file Last Filed Vital Signs Vital Sign Reading Time Taken Comments Blood Pressure 138/79 05/09/2023 7:23 AM SALES SERVICE REPRESENTATIVE Pulse 92 05/09/2023 7:23 AM SALES SERVICE REPRESENTATIVE Temperature 36.9 C (98.4 F) 05/09/2023 7:23 AM SALES SERVICE REPRESENTATIVE Respiratory Rate 17 05/09/2023 7:23 AM SALES SERVICE REPRESENTATIVE Oxygen Saturation 98% 05/09/2023 7:23 AM SALES SERVICE REPRESENTATIVE Inhaled Oxygen Concentration - - Weight 77.1 kg (170 lb) 05/09/2023 7:23 AM SALES SERVICE REPRESENTATIVE Height 170.2 cm (5' 7 ) 05/09/2023 7:23 AM SALES SERVICE REPRESENTATIVE Body Mass Index 26.63 05/09/2023 7:23 AM SALES SERVICE REPRESENTATIVE Plan of Treatment Health Maintenance Due Date Last Done Comments ASCVD Statin 1960 Colorectal Cancer Screening Colonoscopy (10 Years) 1959 Kidney Health Evaluation 1959 Annual Physical 08/27/1962 Pneumococcal Vaccine: Pediatrics (0 to 5 Years) and At-Risk Patients (6 to 64 Years) (1 of 2 - PCV) 08/27/1965 Diabetes: Retinopathy Eye Exam 08/27/1977 Hepatitis C 08/27/1977 DTaP, Tdap and Td Vaccines (1 - Tdap) 08/27/1978 Zoster Vaccines (1 of 2) 08/27/2009 RSV Immunization or 60+ Years (1 - Risk 60-74 years 1-dose series) 2019 Hemoglobin A1C 10/27/2022 07/27/2022, 08/3 03/2021, 07/05/2021 ASCVD LDL 11/08/2022 11/08/2021, 07/05/2021 Lipid Panel 11/08/2022 11/08/2021, 04/2 09/2021, 06/06/2020, Additional history exists COVID-19 Vaccine ( season) 2023 06/01/2020, 05/12/2020 Influenza Adult (#1) 2023 04/08/2016 Meningococcal B Vaccine Aged Out No l onger eligible based on patient's age to complete this topic Meningococcal Vaccine Aged Out No evelia martin eligible based on patient's age to complete this topic RSV Immunizations Under 20 Months Aged Out No longer eligible based on patient's age to complete this topic Goals Goal Patient Goal Type Associated Problems Recent Progress Patient-Stated? Author Patient will return to prior living situation and remain independent in ADLs upon discharge from hospital Lifestyle No Flores Arguelles RN Medical Devices Implanted Type Area Federal Judge Device Identifier Shelf Expiration Date Model / Serial / Lot Patch Nasima. Vasc. Vascu-Guard 0.8cm X 8cm - [id number] Implanted:Qty: 1 on 12/24/2022 by Yash Costello MD at [facility] [employer] Mesh Right: Groin Seesmic - BIOSCIENCE 07/19/2023 [id number] / [id number] Description:Right femoral ar chelsey vascular repair patch Procedures Procedure Name Priority Date/Time Associated Diagnosis Comments HEMOGLOBIN, GLYCOSYLATED Routine 07/27/2022 7:27 AM CDT LIPID PANEL Routine 11/08/2021 11:14 AM CDT Peripheral vascular disease Ischemic cardiomyopathy Hyperlipidemia Hyperlipidemia due to type 2 diabetes mellitus ([facility]) from Last 3 Months or Most Recently Relevant to Health Maintenance Results * (ABNORMAL) HEMOGLOBIN, GLYCOSYLATED (07/27/2022 7:27 AM CDT) HGB A1C 11.7(H) <5.7 % 07/27/2022 10:19 AM CDT [facility] Comment: ADA GUIDELINES 2010 5.7 TO 6.4% INCREASED RISK OF DIABETES > OR = 6.5% CONSISTENT WITH DIABETES ESTIMATED AVG GLUCOSE 289 mg/dL 07/27/2022 10:19 AM CDT [facility] 07/27/2022 7:27 AM CDT Nakita SIMPSON LABORATORY Final Result [facility] [address] [place] [address], [place] [phone] * (ABNORMAL) LIPID PANEL (11/08/2021 11:14 AM CDT) CHOLESTEROL 105 <200 MG/DL 11/08/2021 12:05 PM CDT [facility] TRIGLYCERIDES 196(H) <150 MG/DL 11/08/2021 12:05 PM CDT [facility] HDL 39(L) >40.0 MG/DL 11/08/2021 12:05 PM CDT [facility] LDL (CALCULATED) 27 <100 MG/DL 11/08/2021 12:05 PM CDT [facility] NON HDL CHOLESTEROL 66 <130 MG/DL 11/08/2021 12:05 PM CDT [facility] CHOL/HDL RATIO 2.7 0.0 - 4.5 11/08/2021 12:05 PM CDT [facility] VLDL CALCULATION 39 5 - 55 MG/DL 11/08/2021 12:05 PM T [facility] LIPID INTERPRETATION 11/08/2021 12:05 PM T [facility] Comment: NIH CONCENSUS REPORT RECOMMENDATIONS: ADULT CHILD LOW RISK: CHOLESTEROL <200 <170 TRIGLYCERIDE <150 --- HDL >=60 --- LDL <100 <110 BORDERLINE: CHOLESTEROL 200-239 170-199 TRIGLYCERIDE 150-199 --- HDL 40-59 --- LDL 100-159 110-129 HIGH RISK: CHOLESTEROL >=240 >=200 TRIGLYCERIDE >=200 --- HDL <40 --- LDL >=160 >=130 11/08/2021 11:1 4 AM CDT us Salome Thomas MD LABORATORY Final Result [facility] [address] [place] [address], from Last 3 Months or Most Recently Relevant to Health Maintenance Advance Directives * Full Code (Latest Code Status on File) Date Activated Date Inactivated Comments 10/18/2022 3:20 PM 10/18/2022 7:57 PM * Full Code Date Activated Date Inactivated Comments 07/26/2022 2:09 PM 07/27/2022 2:16 PM Care Teams Resource Room Teacher Relationship Specialty Start Date End Date Nakita Johnston MD [address] [place] [address] [place] [address] PCP - General FAMILY PRACTICE 07/07/21
--- OUTSIDE RECORDS SUMMARY | 2024-04-30 10:31 | XMS_ITS | Data Portability ---
Author Organization [facility], Main Office Address [address] [place] [address] Assessment No assessment recorded. Plan of Treatment Reminders Order Date Submit Date Provider Last Modified By Organization Details Last Modified Time Details Appointments Follow Up 30 2024 03:00P Siva Vasquez NP Not available Not available Not available Lab CBC w/ auto diff 2024 025 [facility] (Lab), [address] [place], [address], 04/23/2024 11:37:19 glycoh emoglo bin, total, blood 2024 025 [facility] (Lab), [address] [place], [address], 04/29/2024 08:40:33 vitami n D, 25-hyd dawn, total, serum 2024 025 [facility] (Lab), [address] [place], [address], 04/23/2024 11:37:24 vitami n B12 + folate , serum or blood 2024 025 [facility] (Lab), [address] [place], [address], 04/29/2024 08:40:33 lipid panel, serum 2024 025 [facility] (Lab), [address] [place], [address], 04/23/2024 11:37:23 hepati c functi on panel, serum 2024 025 [facility] (Lab), [address] [place], [address], 04/23/2024 11:37:22 CMP, serum or plasma 2024 025 [facility] (Lab), [address] [place], [address], 04/23/2024 11:37:21 Referral vascul odalys kuo referr al 2024 025 frivastorres Not available 04/21/2024 16:26:52 Procedures None record ed. Surgeries None record ed. Imaging None record ed. Medication Orders metopr olol succin ate ER 100 mg tablet ,exten ded releas e 24 hr 2024 025 [facility] [address], [address], [place], [address], 04/21/2024 16:23:21 lisino pril 40 mg tablet 2024 025 [facility] [address], [address], [place], [address], 04/21/2024 16:23:20 Jentad ueto XR 5 mg-1,0 00 mg tablet , extend ed releas e 2024 025 [facility] [address], [address], [place], [address], 04/21/2024 16:23:22 Jardia nce 25 mg tablet 2024 025 [facility] [address], [address], [place], [address], 04/21/2024 16:23:22 rosuva statin 40 mg tablet 2024 025 [facility] [address], [address], [place], [address], 04/21/2024 16:23:23 ezetim melissa 10 mg tablet 2024 025 SHARITA Armando [facility] [address], [address], [place], [address], 04/21/2024 16:23:22 Patient TargetsNo targets recorded. Patient InstructionsNo instructions recorded. Reason for Referral Vascular Surgeon Referral fo r Peripheral vascular disease Referring Physician: Beata Vasquez, Family Medicine, Encounter Date: 04/21/2024 Results Created Date Observation Date Name Description Value Unit Range Abnormal Flag Note LastModifiedBy Organization Detail LastModifiedTime 11/17/19 22 11/16/2021 HEMOG LOBIN A1C HA1C 12.5 % 4.0-6. 0 high Diabe francesca Scree marcelina Crite kay: <5.7% Consi stent with absen ce of diabe francesca 5.7-6 .4% Consi stent with incre ased risk for diabe francesca (pred iabet es) >OR=6 .5% Consi stent with diabe francesca REFER ENCE: Diabe francesca Care 39(Lakhani ppl.1 ):s13 -s22 Not Available [facility] (Lab) [address] [place], [address], 11/16/2021 21:44:05 04/23/19 23 04/23/2022 HEMOG LOBIN A1C HA1C 12.3 % 4.0-6. 0 high Diabe francesca Scree marcelina Crite kay: <5.7% Consi stent with absen ce of diabe francesca 5.7-6 .4% Consi stent with incre ased risk for diabe francesca (pred iabet es) >OR=6 .5% Consi stent with diabe francesca REFER ENCE: Diabe francesca Care 39(Lakhani ppl.1 ):s13 -s22 Not Available [facility] (Lab) [address] [place], [address], 04/23/2022 21:05:17 04/23/19 23 04/23/2022 HEPAT IC/LI ESTIVEN PANEL alkaline phosphatase 95 U/L 38-126 Not Available [facility] (Lab) [address] [place], [address], 04/23/2022 19:37:26 04/23/19 23 04/23/2022 HEPAT IC/LI ESTIVEN PANEL alanine aminotransfe rase 25 U/L 0-50 Not Available [facility] (Lab) [address] [place], [address], 04/23/2022 19:37:26 04/23/19 23 04/23/2022 HEPAT IC/LI ESTIVEN PANEL aspartate aminotransfe rase 25 U/L 15-46 Not Available [facility] (Lab) [address] [place], [address], 04/23/2022 19:37:26 04/23/19 23 04/23/2022 HEPAT IC/LI ESTIVEN PANEL bilirubin, total 0.60 mg/dL 0.20-1 .30 Not Available [facility] (Lab) [address] [place], [address], 04/23/2022 19:37:26 04/23/19 23 04/23/2022 HEPAT IC/LI ESTIVEN PANEL bilirubin, conjugated (direct) 0.00 mg/dL 0.00-0 .30 Not Available [facility] (Lab) [address] [place], [address], 04/23/2022 19:37:26 04/23/19 23 04/23/2022 HEPAT IC/LI ESTIVEN PANEL biliurubin,u ncong. (indirect) 0.20 mg/dL 0.00-1 .1 Not Available [facility] (Lab) [address] [place], [address], 04/23/2022 19:37:26 04/23/19 23 04/23/2022 HEPAT IC/LI ESTIVEN PANEL total protein 7.0 g/dL 6.3-8. 2 Not Available [facility] (Lab) [address] [place], [address], 04/23/2022 19:37:26 04/23/19 23 04/23/2022 HEPAT IC/LI ESTIVEN PANEL albumin 4.2 g/dL 3.4-5. 0 Not Available [facility] (Lab) [address] [place], [address], 04/23/2022 19:37:26 04/23/19 23 04/23/2022 HEPAT IC/LI ESTIVEN PANEL globulin 2.8 g/dL 2.6-4. 2 Not Available [facility] (Lab) [address] [place], [address], 04/23/2022 19:37:26 04/23/19 23 04/23/2022 HEPAT IC/LI ESTIVEN PANEL A/G ratio 1.5 ratio 1.0-2. 0 Not Available [facility] (Lab) [address] [place], [address], 04/23/2022 19:37:26 04/23/19 23 04/23/2022 LIPID PANEL cholesterol 89 mg/dL 140-19 9 low NIH HECTOR NSUS RECOM MENDA TION FOR MONAE STERO L: ADULT CHILD LOW RISK: <200 <170 BORDE RLINE : <200- 239 ----- HIGH RISK: >240 >200 Not Available [facility] (Lab) [address] [place], [address], 04/23/2022 19:37:22 04/23/1904/23/2022 LIPID PANEL triglyceride s 257 mg/dL 0-150 high NIH HECTOR NSUS REPOR T RECOM MENDA TION FOR TRIGL YCERI KASSIE: ADULT CHILD LOW RISK: <150 ----- BODER LINE: 150-1 99 ----- HIGH RISK: >200 ----- Not Available [facility] (Lab) [address] [place], [address], 04/23/2022 19:37:22 04/23/19 23 04/23/2022 LIPID PANEL HDL cholesterol 36 mg/dL 40- low Not Available [facility] (Lab) [address] [place], [address], 04/23/2022 19:37:22 04/23/19 23 04/23/2022 LIPID PANEL LDL cholesterol, calculated 2 mg/dL 0-130 NIH HECTOR NSUS REPOR T RECOM MENDA TIONS FOR LDL: ADULT CHILD LOW RISK <130 <110 (OPTI MAL LDL) <100 ----- BORDE RLINE : 130-1 59 ----- HIGH RISK: >160 >130 A TRIGL YCERI DE RESUL T >400 INVAL IDATE S THE CALCU LATIO N FOR LDL FRACT IONAT ION - THE LDL RESUL T WILL NOT BE REPOR PASCUAL. Not Available [facility] (Lab) [address] [place], [address], 04/23/2022 19:37:22 04/23/19 23 04/23/2022 BASIC METAB OLIC PANEL sodium 133 mmol/ L 137-14 5 low Not Available [facility] (Lab) [address] [place], [address], 04/23/2022 19:37:15 04/23/19 23 04/23/2022 BASIC METAB OLIC PANEL potassium 4.2 mmol/ L 3.5-5. 1 Not Available [facility] (Lab) [address] [place], [address], 04/23/2022 19:37:15 04/23/19 23 04/23/2022 BASIC METAB OLIC PANEL chloride 101 mmol/ L 98-107 Not Available [facility] (Lab) [address] [place], [address], 04/23/2022 19:37:15 04/23/19 23 04/23/2022 BASIC METAB OLIC PANEL carbon dioxide 21 mmol/ L 22-30 low Not Available [facility] (Lab) [address] [place], [address], 04/23/2022 19:37:15 04/23/19 23 04/23/2022 BASIC METAB OLIC PANEL anion gap 15.2 mmol/ L 14-22 Not Available [facility] (Lab) [address] [place], [address], 04/23/2022 19:37:15 04/23/19 23 04/23/2022 BASIC METAB OLIC PANEL glucose 325 mg/dL 70-99 high Not Available [facility] (Lab) [address] [place], [address], 04/23/2022 19:37:15 04/23/19 23 04/23/2022 BASIC METAB OLIC PANEL BUN 22 mg/dL 8-19 high Not Available [facility] (Lab) [address] [place], [address], 04/23/2022 19:37:15 04/23/19 23 04/23/2022 BASIC METAB OLIC PANEL creatinine 0.92 mg/dL 0.66-1 .25 Not Available [facility] (Lab) [address] [place], [address], 04/23/2022 19:37:15 04/23/19 23 04/23/2022 BASIC METAB OLIC PANEL GFR >60 Refer ence Range : [place] GFR Healt hy Adult : >60 mL/mi n/1.7 3 m2 Chron ic Kidne y Disea se: 15-60 mL/mi n/1.7 3 m2 Kidne y Failu re: <15/m L/min /1.73 m2 www.n iddk. nih.g ov The MDRD study equat ion has not been valid ated in child russ <18 years of age; pregn ant women ; the elder ly >85 years of age; or in some racia l or ethni c subgr oups, such as Hispa nics. Outsi de the valid ated toña eters , estim ated GFR is less accur ate, requi ring clini tracey judgm ent on a case- by-ca se basis . Clini tracey inter preta tion for other races and ages must be made by the clini jayson. The MDRD study equat ion has not been valid ated for the evalu ation of serum creat inine relat ed to nutri mason l statu s or medic ation usage . For perso ns <18 years of age, a pedia tric GFR calcu lator is avail able on the F websi te: https ://ww w.kid jose miguel.o rg/pr ofess ional s/kdo qi/gf r_cal culat or Not Available [facility] (Lab) [address] [place], [address], 04/23/2022 19:37:15 04/23/19 23 04/23/2022 BASIC METAB OLIC PANEL calcium 9.1 mg/dL 8.4-10 .2 Not Available [facility] (Lab) [address] [place], [address], 04/23/2022 19:37:15 04/23/19 23 04/23/2022 CBC/C OMPLE TE BLD COUNT W/DIF F white blood cells 7.2 x10'3 /uL 4.2-10 .8 Not Available [facility] (Lab) [address] [place], [address], 04/23/2022 19:03:19 04/23/19 23 04/23/2022 CBC/C OMPLE TE BLD COUNT W/DIF F red blood cells 4.90 x10'6 /uL 4.10-5 .80 Not Available [facility] (Lab) [address] [place], [address], 04/23/2022 19:03:19 04/23/19 23 04/23/2022 CBC/C OMPLE TE BLD COUNT W/DIF F hemoglobin 15.5 g/dL 13.2-1 7.0 Not Available [facility] (Lab) [address] [place], [address], 04/23/2022 19:03:19 04/23/1904/23/2022 CBC/C OMPLE TE BLD COUNT W/DIF F hematocrit 45.5 % 39.3-5 0.0 Not Available [facility] (Lab) [address] [place], [address], 04/23/2022 19:03:19 04/23/1904/23/2022 CBC/C OMPLE TE BLD COUNT W/DIF F mean red cell volume 92.9 fL 80.0-9 7.0 Not Available [facility] (Lab) [address] [place], [address], 04/23/2022 19:03:19 04/23/1904/23/2022 CBC/C OMPLE TE BLD COUNT W/DIF F mean red cell hemoglobin 31.6 pg 27.0-3 3.0 Not Available [facility] (Lab) [address] [place], [address], 04/23/2022 19:03:19 04/23/1904/23/2022 CBC/C OMPLE TE BLD COUNT W/DIF F mean RBC HGB concentratio n 34.1 g/dL 31.0-3 6.0 Not Available [facility] (Lab) [address] [place], [address], 04/23/2022 19:03:19 04/23/1904/23/2022 CBC/C OMPLE TE BLD COUNT W/DIF F red cell distribution width 11.9 % 11.8-1 5.5 Not Available [facility] (Lab) [address] [place], [address], 04/23/2022 19:03:19 04/23/19 23 04/23/2022 CBC/C OMPLE TE BLD COUNT W/DIF F platelets 277 x10'3 /uL 150-40 0 Not Available [facility] (Lab) [address] [place], [address], 04/23/2022 19:03:19 04/23/1904/23/2022 CBC/C OMPLE TE BLD COUNT W/DIF F mean platelet volume 10.6 fL 9.0-12 .4 Not Available [facility] (Lab) [address] [place], [address], 04/23/2022 19:03:19 04/23/1904/23/2022 CBC/C OMPLE TE BLD COUNT W/DIF F neutrophils 63.4 % 39.0-7 2.0 Not Available [facility] (Lab) [address] [place], [address], 04/23/2022 19:03:19 04/23/1904/23/2022 CBC/C OMPLE TE BLD COUNT W/DIF F lymphocytes 26.4 % 16.0-4 7.0 Not Available [facility] (Lab) [address] [place], [address], 04/23/2022 19:03:19 04/23/1904/23/2022 CBC/C OMPLE TE BLD COUNT W/DIF F monocytes 8.6 % 5.0-12 .0 Not Available [facility] (Lab) [address] [place], [address], 04/23/2022 19:03:19 04/23/1904/23/2022 CBC/C OMPLE TE BLD COUNT W/DIF F eosinophils 0.6 % 1.0-7. 0 low Not Available [facility] (Lab) [address] [place], [address], 04/23/2022 19:03:19 04/23/1904/23/2022 CBC/C OMPLE TE BLD COUNT W/DIF F basophils 0.6 % 0.0-2. 0 Not Available [facility] (Lab) [address] [place], [address], 04/23/2022 19:03:19 04/23/1904/23/2022 CBC/C OMPLE TE BLD COUNT W/DIF F immature granulocytes 0.4 % 0.00-0 .50 Not Available [facility] (Lab) [address] [place], [address], 04/23/2022 19:03:19 04/23/1904/23/2022 CBC/C OMPLE TE BLD COUNT W/DIF F neutrophils, absolute count 4.56 x10'3 /uL 1.5-8. 0 Not Available [facility] (Lab) [address] [place], [address], 04/23/2022 19:03:19 04/23/1904/23/2022 CBC/C OMPLE TE BLD COUNT W/DIF F lymphocytes, absolute count 1.90 x10'3 /uL 1.07-3 .43 Not Available [facility] (Lab) [address] [place], [address], 04/23/2022 19:03:19 04/23/1904/23/2022 CBC/C OMPLE TE BLD COUNT W/DIF F monocytes, absolute count 0.62 x10'3 /uL 0.29-0 .99 Not Available [facility] (Lab) [address] [place], [address], 04/23/2022 19:03:19 04/23/1904/23/2022 CBC/C OMPLE TE BLD COUNT W/DIF F eosinophils, absolute count 0.04 x10'3 /uL 0.02-0 .53 Not Available [facility] (Lab) [address] [place], [address], 04/23/2022 19:03:19 04/23/19 23 04/23/2022 CBC/C OMPLE TE BLD COUNT W/DIF F basophils, absolute count 0.04 x10'3 /uL 0.01-0 .08 Not Available [facility] (Lab) [address] [place], [address], 04/23/2022 19:03:19 04/23/19 23 04/23/2022 CBC/C OMPLE TE BLD COUNT W/DIF F immature granulocytes ,absolute 0.03 x10'3 /uL 0.00-0 .05 Not Available [facility] (Lab) [address] [place], [address], 04/23/2022 19:03:19 04/23/1904/23/2022 CBC/C OMPLE TE BLD COUNT W/DIF F nucleated red blood cells 0.0 % -0 Not Available [facility] (Lab) [address] [place], [address], 04/23/2022 19:03:19 04/23/19 23 04/23/2022 CBC/C OMPLE TE BLD COUNT W/DIF F NRBC# 0.00 x10'3 /uL Not Available [facility] (Lab) [address] [place], [address], 04/23/2022 19:03:19 04/22/1904/23/2024 CBC WITH DIFFE RENTI AL/PL ATELE T WBC 7.6 x10e3 /uL 3.4-10 .8 normal Not Available [facility] ([facility][1] Lab) [address] [place], [address], 04/23/2024 11:37:19 04/22/1904/23/2024 CBC WITH DIFFE RENTI AL/PL ATELE T RBC 5.45 x10e6 /uL 4.14-5 .80 normal Not Available [facility] ([facility][1] Lab) [address] [facility], [place], [address], 04/23/2024 11:37:19 04/22/19 25 04/23/2024 CBC WITH DIFFE RENTI AL/PL ATELE T hemoglobin 16.7 g/dL 13.0-1 7.7 normal Not Available [facility] ([facility][1] Lab) [address] [place], [address], 04/23/2024 11:37:19 04/22/19 25 04/23/2024 CBC WITH DIFFE RENTI AL/PL ATELE T hematocrit 51.3 % 37.5-5 1.0 above high normal Not Available [facility] ([facility][1] Lab) [address] [place], [address], 04/23/2024 11:37:19 04/22/19 25 04/23/2024 CBC WITH DIFFE RENTI AL/PL ATELE T MCV 94 fL 79-97 normal Not Available [facility] ([facility][1] Lab) [address] [place], [address], 04/23/2024 11:37:19 04/22/19 25 04/23/2024 CBC WITH DIFFE RENTI AL/PL ATELE T MCH 30.6 pg 26.6-3 3.0 normal Not Available [facility] ([facility][1] Lab) [address] [place], [address], 04/23/2024 11:37:19 04/22/19 25 04/23/2024 CBC WITH DIFFE RENTI AL/PL ATELE T MCHC 32.6 g/dL 31.5-3 5.7 normal Not Available [facility] ([facility][1] Lab) [address] [place], [address], 04/23/2024 11:37:19 04/22/19 25 04/23/2024 CBC WITH DIFFE RENTI AL/PL ATELE T RDW 12.4 % 11.6-1 5.4 Not Available [facility] ([facility][1] Lab) [address] [place], [address], 04/23/2024 11:37:19 04/22/19 25 04/23/2024 CBC WITH DIFFE RENTI AL/PL ATELE T platelets 286 x10e3 /uL 150-45 0 normal Not Available [facility] ([facility][1] Lab) [address] [facility], [place], [address], 04/23/2024 11:37:19 04/22/19 25 04/23/2024 CBC WITH DIFFE RENTI AL/PL ATELE T neutrophils 68 % not estab. normal Not Available [facility] ([facility] Lab) [address] [facility], [place], [address], 04/23/2024 11:37:19 04/22/19 25 04/23/2024 CBC WITH DIFFE RENTI AL/PL ATELE T lymphs 21 % not estab. normal Not Available [facility] ([facility][1] Lab) [address] [facility], [place], [address], 04/23/2024 11:37:19 04/22/19 25 04/23/2024 CBC WITH DIFFE RENTI AL/PL ATELE T monocytes 8 % not estab. normal Not Available [facility] ([facility][1] Lab) [address] [facility], [place], [address], 04/23/2024 11:37:19 04/22/19 25 04/23/2024 CBC WITH DIFFE RENTI AL/PL ATELE T eos 2 % not estab. normal Not Available [facility] ([facility] Lab) [address] [facility], [place], [address], 04/23/2024 11:37:19 04/22/19 25 04/23/2024 CBC WITH DIFFE RENTI AL/PL ATELE T basos 0 % not estab. 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 0 normal Not Available [facility] ([facility][1] Lab) [address] [place], [address], 04/23/2024 11:37:19 04/22/19 25 04/23/2024 CBC WITH DIFFE RENTI AL/PL ATELE T lymphs (absolute) 1.6 x10e3 /uL 0.7-3. 1 normal Not Available [facility] ([facility][1] Lab) [address] [place], [address], 04/23/2024 11:37:19 04/22/19 25 04/23/2024 CBC WITH DIFFE RENTI AL/PL ATELE T monocytes(ab solute) 0.6 x10e3 /uL 0.1-0. 9 normal Not Available [facility] ([facility][1] Lab) [address] [place], [address], 04/23/2024 11:37:19 04/22/19 25 04/23/2024 CBC WITH DIFFE RENTI AL/PL ATELE T eos (absolute) 0.1 x10e3 /uL 0.0-0. 4 normal Not Available [facility] ([facility][1] Lab) [address] [place], [address], 04/23/2024 11:37:19 04/22/19 25 04/23/2024 CBC WITH DIFFE RENTI AL/PL ATELE T baso (absolute) 0.0 x10e3 /uL 0.0-0. 2 normal Not Available [facility] ([facility][1] Lab) [address] [place], [address], 04/23/2024 11:37:19 04/22/19 25 04/23/2024 CBC WITH DIFFE RENTI AL/PL ATELE T immature granulocytes 1 % not estab. Not Available [facility] ([facility]] Lab) [address] [facility], [place], [address], 04/23/2024 11:37:19 04/22/19 25 04/23/2024 CBC WITH DIFFE RENTI AL/PL ATELE T immature grans (abs) 0.1 x10e3 /uL 0.0-0. 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 METAB OLIC PANEL (14) glucose 439 mg/dL 70-99 above high normal Not Available [facility] ([facility][1] Lab) [address] [facility], [place], [address], 04/23/2024 11:37:20 04/22/19 25 04/23/2024 COMP. METAB OLIC PANEL (14) BUN 22 mg/dL 8-27 normal Not Available [facility] ([facility][1] Lab) [address] [place], [address], 04/23/2024 11:37:20 04/22/19 25 04/23/2024 COMP. METAB OLIC PANEL (14) creatinine 0.86 mg/dL 0.76-1 .27 normal Not Available [facility] ([facility][1] Lab) [address] [place], [address], 04/23/2024 11:37:20 04/22/19 25 04/23/2024 COMP. METAB OLIC PANEL (14) eGFR 97 mL/mi n/1.7 3 >59 normal Not Available [facility] ([facility][1] Lab) [address] [place], [address], 04/23/2024 11:37:20 04/22/19 25 04/23/2024 COMP. METAB OLIC PANEL (14) BUN/creatini ne ratio 26 10-24 above high normal Not Available [facility] ([facility][1] Lab) [address] [place], [address], 04/23/2024 11:37:20 04/22/19 25 04/23/2024 COMP. METAB OLIC PANEL (14) sodium 131 mmol/ L 134-14 4 below low normal Not Available [facility] ([facility]] Lab) [address] [place], [address], 04/23/2024 11:37:20 04/22/19 25 04/23/2024 COMP. METAB OLIC PANEL (14) potassium 4.2 mmol/ L 3.5-5. 2 normal Not Available [facility] ([facility] Lab) [address] [place], [address], 04/23/2024 11:37:20 04/22/19 25 04/23/2024 COMP. METAB OLIC PANEL (14) chloride 94 mmol/ L 96-106 below low normal Not Available [facility] ([facility]] Lab) [address] [place], [address], 04/23/2024 11:37:20 04/22/19 25 04/23/2024 COMP. METAB OLIC PANEL (14) carbon dioxide, total 23 mmol/ L 20-29 normal Not Available [facility] ([facility][1] Lab) [address] [place], [address], 04/23/2024 11:37:20 04/22/19 25 04/23/2024 COMP. METAB OLIC PANEL (14) calcium 9.3 mg/dL 8.6-10 .2 normal Not Available [facility] ([facility][1] Lab) [address] [place], [address], 04/23/2024 11:37:20 04/22/19 25 04/23/2024 COMP. METAB OLIC PANEL (14) protein, total 6.8 g/dL 6.0-8. 5 normal Not Available [facility] ([facility] Lab) [address] [facility] [place], [address], 04/23/2024 11:37:20 04/22/19 25 04/23/2024 COMP. METAB OLIC PANEL (14) albumin 4.1 g/dL 3.9-4. 9 normal Not Available [facility] ([facility][1] Lab) [address] [place], [address], 04/23/2024 11:37:20 04/22/19 25 04/23/2024 COMP. METAB OLIC PANEL (14) globulin, total 2.7 g/dL 1.5-4. 5 Not Available [facility] ([facility][1] Lab) [address] [place], [address], 04/23/2024 11:37:20 04/22/19 25 04/23/2024 COMP. METAB OLIC PANEL (14) bilirubin, total 0.3 mg/dL 0.0-1. 2 normal Not Available [facility] ([facility]) [address] [place], [address], 04/23/2024 11:37:20 04/22/19 25 04/23/2024 COMP. METAB OLIC PANEL (14) alkaline phosphatase 135 IU/L 44-121 above high normal Not Available [facility] ([facility]) [address] [place], [address], 04/23/2024 11:37:20 04/22/19 25 04/23/2024 COMP. METAB OLIC PANEL (14) AST (SGOT) 11 IU/L 0-40 normal Not Available [facility] ([facility] Lab) [address] [place], [address], 04/23/2024 11:37:20 04/22/19 25 04/23/2024 COMP. METAB OLIC PANEL (14) ALT (SGPT) 9 IU/L 0-44 normal Not Available [facility] ([facility]) [address] [place], [address], 04/23/2024 11:37:20 04/22/19 25 04/23/2024 HEPAT IC FUNCT ION PANEL (7) bilirubin, direct 0.14 mg/dL 0.00-0 .40 normal Not Available [facility] ([facility]) [address] [place], [address], 04/23/2024 11:37:22 04/22/19 25 04/23/2024 LIPID PANEL cholesterol, total 249 mg/dL 100-19 9 above high normal Not Available [facility] ([facility]) [address] [place], [address], 04/23/2024 11:37:23 04/22/19 25 04/23/2024 LIPID PANEL triglyceride s 272 mg/dL 0-149 above high normal Not Available [facility] ([facility]) [address] [place], [address], 04/23/2024 11:37:23 04/22/19 25 04/23/2024 LIPID PANEL HDL cholesterol 38 mg/dL >39 below low normal Not Available [facility] ([facility]) [address] [place], [address], 04/23/2024 11:37:23 04/22/19 25 04/23/2024 LIPID PANEL VLDL cholesterol tracey 51 mg/dL 5-40 above high normal Not Available [facility] ([facility]) [address] [facility], [place], [address], 04/23/2024 11:37:23 04/22/19 25 04/23/2024 LIPID PANEL LDL chol calc ([facility]) 160 mg/dL 0-99 above high normal Not Available [facility] ([facility]) [address] [facility], [place], [address], 04/23/2024 11:37:23 04/22/19 25 04/23/2024 LIPID PANEL LDL calc comment: [employer] Not Available [facility] ([facility]) [address] [facility], [place], [address], 04/23/2024 11:37:23 04/22/19 25 04/23/2024 VITAM IN B12 AND FOLAT E vitamin B12 795 pg/mL 232-12 45 normal Not Available [facility] ([facility][1[facility]) [address] [facility], [place], [address], 04/23/2024 11:37:24 04/22/19 25 04/23/2024 VITAM IN B12 AND FOLAT E folate (folic acid), serum 10.9 NG/mL >3.0 normal A serum folat e hector ntrat ion of less than 3.1 ng/mL is consi dered to repre sent clini tracey defic iency . Not Available [facility] ([facility]) [address] [facility], [place], [address], 04/23/2024 11:37:24 04/22/19 25 04/23/2024 VITAM IN D, 25-HY DROXY vitamin D, 25-hydroxy 6.8 NG/mL 30.0-1 00.0 below low normal Vitam in D defic iency has been defin ed by the Insti tute of Medic ine and an Endoc rine Socie ty pract ice guide line as a level of serum 25-OH vitam in D less than 20 ng/mL (1,2) . The Endoc rine Socie ty went on to furth er defin e vitam in D insuf ficie ncy as a level betwe en 21 and 29 ng/mL (2). 1. IOM (Inst itute of Medic ine). 2010. Dieta ry refer ence intak es for calci um and D. Emmanuel marroquin [place]: The [facility] . 2. Jesús castillo MF, Kelsey mayers [place], [place] off-F errar i VAUGHN, et al. Evalu ation , treat ment, and preve ntion of vitam in D defic iency : an Endoc rine Socie ty clini tracey pract ice guide line. JCEM. 2010; 96(7) :1911 -30. Not Available [facility] ([facility]) [address] [place], [address], 04/23/2024 11:37:24 04/22/19 25 04/23/2024 HEMOG LOBIN A1C hemoglobin A1C 14.5 % 4.8-5. 6 above high normal Predi abete s: 5.7 - 6.4 Diabe francesca: >6.4 Glyce wiliam contr ol for adult s with diabe francesca: <7.0 Not Available [facility] ([facility]) [address] [place], [address], 04/23/2024 11:37:26 04/22/19 25 04/22/2024 SHASTA FLORES V LP DEFAU LT shasta bosch LP default COMMEN T A hand- writt en panel /prof ile was recei ollie from your offic e. In accor dance with the [facility] Shasta baez Test Code Polic y dated September 2002, we have compl eted your order by using the close st curre ntly or forme rly recog nized AMA panel . We have reinaldo mejia Lipid Panel , Test Code #30[address]. If this is not the testi ng you wishe d to recei ve on this speci men, pleas e conta ct the [facility] Clien t Inqui ry/Te chnic al Servi eric Depar tment to jimmy fy the test order . We appre ciate your busin ess. Not Available [facility] ([facility]) [address] [facility], [place], [address], 04/23/2024 11:37:26 04/22/19 25 04/22/2024 AMBIG ABBRE V HFP7 DEFAU LT ambig abbrev hfp7 default Commen t A hand- writt en panel /prof ile was recei ollie from your offic e. In accor dance with the [facility] Ambig uous Test Code Polic y dated September 2002, we have compl eted your order by using the close st curre ntly or forme rly recog nized AMA panel . We have assig roberto Hepat ic Funct ion Panel (7), Test Code #32[address]. If this is not the testi ng you wishe d to recei ve on this speci men, pleas e conta ct the [facility] Clien t Inqui ry/Te chnic al Servi eric Depar tment to jimmy fy the test order . We appre ciate your busin ess. Not Available [facility] ([facility]) [address] [facility], [place], [address], 04/23/2024 11:37:27 04/22/19 25 04/22/2024 AMBIG ABBRE V CMP14 DEFAU LT ambig abbrev CMP14 default COMMEN T A hand- writt en panel /prof ile was recei ollie from your offic e. In accor dance with the [facility] Ambig uous Test Code Polic y dated September 2002, we have compl eted your order by using the close st curre ntly or forme rly recog nized AMA panel . We have assig roberto Compr ehens elyse Metab olic Panel (14), Test Code #32[address]. If this is not the testi ng you wishe d to recei ve on this speci men, pleas e conta ct the [facility] Clien t Inqui ry/Te chnic al Servi eric Depar tment to jimmy fy the test order . We appre ciate your busin ess. Not Available [facility] ([facility]) [address] [facility], [place], [address], 04/23/2024 11:37:28 Result Notes None recorded. Problems Name Problem SNOMED Code Status Onset Date Resolution Date Notes Provider Name and Address Organization Details Recorded Time Hypertensive disorder 57208548 Active 2021 Not Available [facility] 4 01:49:40 Hyperlipidemi a 11243288 Active 2021 Not Available [facility] 4 01:49:40 Diabetes mellitus 69576469 Active 2021 Not Available [facility] 4 01:49:40 Peripheral vascular disease 786125190 Active 2024 JHON Jordan [address], [address], [place], [address] , [employer] [facility] 5 16:16:59 Type 2 diabetes mellitus without complication 314444283 Active 2024 JHON Jordan [address], [address], [address] , [facility] 5 16:20:14 Essential hypertension 95459391 Active 2024 JHON Jordan [address], [address], [place], [address] , listedplaces [facility] 5 16:20:14 Unintentional weight loss 263280844 Active 2024 JHON Jordan [address], [address], [place], [address] , listedplaces [facility] 5 16:24:14 Vitamin D deficiency 31470385 Active 2024 JHON Jordan [address], [address], [place], [address] , [facility] 11:42:40 Notes:Some problems listed i n Documents: #[id number], #[id number], #[id number], #[id number], #[id number] could not be added to this patient's chart. Please review these documents and add these problems to the patient's chart manually as needed. Problem Notes None recorded. Medical Equipment None Reported. Medications Name Sig Start Date Stop Date Status Note LastModified by Organization Details LastModified Time cilostazol 100 mg tablet TAKE 1 TABLET BY MOUTH TWICE DAILY 04/21 completed Not Available Not Available Not Available azithromyci n 250 mg tablet TAKE 2 TABLETS BY MOUTH FOR 1 DAY THEN TAKE 1 TABLET BY MOUTH DAILY FOR 4 DAYS DIRECTED 07/05 completed Not Available Not Available Not Available hydrocodone 5 mg-acetamin ophen 325 mg tablet TAKE 1 TABLET BY MOUTH EVERY 6 HOURS NEEDED FOR PAIN active Not Available Not Available No t Available glipizide ER 10 mg tablet, extended release 24 hr Take 1 tablet every day by oral route. active Not Available Not Available No t Available metoprolol succinate ER 100 mg tablet,exte nded release 24 hr Take 1 tablet by mouth once daily for 90 days. 2024 active Not Available Not Available Not Avai lable cefadroxil 500 mg capsule TAKE 1 CAPSULE BY MOUTH EVERY 12 HOURS FOR 10 DAYS 04/21 completed Not Available Not Available Not Available oxycodone-a cetaminophe n 5 mg-325 mg tablet TAKE 1 TABLET BY MOUTH EVERY 6 HOURS NEEDED FOR PAIN active Not Available Not Available No t Available ibuprofen 400 mg tablet 04/21 completed Not Available Not Available Not Available gabapentin 100 mg capsule 07/05 completed Not Available Not Available Not Available ergocalcife rol (vitamin D2) 1,250 mcg (50,000 unit) capsule Take 1 capsule every week by oral route. 2024 active Not Available Not Available Not Avai lable albuterol sulfate HFA 90 mcg/actuati on aerosol inhaler INHALE 2 PUFFS BY MOUTH EVERY 4 HOURS NEEDED 04/21 completed Not Available Not Available Not Available lisinopril 40 mg tablet Take 1 tablet by mouth once daily. 2024 active Not Available Not Available Not Avai lable ezetimibe 10 mg tablet Take 1 tablet by mouth once daily 2024 active Not Available Not Available Not Avai lable rosuvastati n 40 mg tablet TAKE 1 TABLET BY MOUTH ONCE DAILY IN THE EVENING. 2024 active Not Available Not Available Not Avai lable Lantus Solostar U-100 Insulin 100 unit/mL (3 mL) subcutaneou s pen INECT 25 UNITS UNDER THE SKIN TWICE DAILY 07/05 completed Not Available Not Available Not Available Jardiance 25 mg tablet Take 1 tablet every day by oral route. 2024 active Not Available Not Available Not Avai lable Jentadueto XR 5 mg-1,000 mg tablet, extended release Take 2 tablets every day by oral route. 2024 active Not Available Not Available Not Avai lable TRUEplus Pen Needle 32 gauge x /32 USE TWICE DAILY active Not Available Not Available No t Available Vitals Date Recorded Body mass index (BMI) Body mass index (BMI) Body mass index (BMI) Body height Body height Body height Oxygen saturation Oxygen saturation in Arterial blood by Pulse oximetry Oxygen saturation Oxygen saturation in Arterial blood by Pulse oximetry Oxygen saturation Oxygen saturation in Arterial blood by Pulse oximetry Heart rate Heart rate Heart rate Body temperature Body temperature Body temperature Body weight Body weight Body weight Systolic blood pressure Diastolic blood pressure Systolic blood pressure Diastolic blood pressure Systolic blood pressure Diastolic blood pressure Provider Name and Address Organization Details Last Updated DateTime 3 25.8 kg/m2 25.2 kg/m2 25.5 kg/m2 172.72 cm 172.72 cm 172.72 cm 97 % 97 % 97 % 97 % 96 % 96 % 81 /min 77 /min 81 /min 97.2 [degF] 96.8 [degF] 98.1 [degF] 39909.7 g 59490.3 3 g 63989.5 2 g 140 mm[Hg] 76 mm[Hg] 138 mm[Hg] 72 mm[Hg] 138 mm[Hg] 70 mm[Hg] Not Available [facility] 3 00:57:56 Date Recorded Body weight Body temperature Heart rate Oxygen saturation Oxygen saturation in Arterial blood by Pulse oximetry Systolic blood pressure Diastolic blood pressure Provider Name and Address Organization Details Last Updated DateTime 5 50112.2 6 g 96.7 [degF] 78 /min 96 % 96 % 120 mm[Hg] 70 mm[Hg] Mariel Wagner RN [place] - [facility] 16:03:31 Social History Question Answer Notes LastModified by [email or web address] Details LastModified Time Tobacco Smoking Status Former Smoker quit about 2016 Not Available [facility] 05/10/2022 00:57:10 In The 14 Days Before Symptom Onset, Have You Had Close Contact With A Laboratory-confir med COVID-19 While That Case Was Ill? No [id number] Information not available 05/10/2022 In The 14 Days Before Symptom Onset, Have You Had Close Contact With A Person Who Is Under Investigation For COVID-19 While That Person Was Ill? No [id number] Information not available 05/10/2022 What Type Of Diet Are You Following? REGULAR [id number] Information not available 05/10/2022 Have You Recently Traveled Abroad? No [id number] Information not available 05/10/2022 Do You Have Any Dietary Restrictions? No [id number] Information not available 05/10/2022 Sex: Unknown Functional Status Question Answer Note LastModified by [email or web address] Details LastModified Time What is your exercise level? None [id number] Information not available 05/10/2022 Mental Status None recorded. Family History Relationship Description Onset Age of this Age Resolved Age Notes LastModified by Organization Details LastModified Time Father Diabetes mellitus [id number] Not available 05/10/2022 00:57:15 Father Hypertensive disorder [id number].220 [id number] Not available 05/10/2022 00:57:15 Father Heart disease [id number] Not available 05/10/2022 00:57:15 Sister Diabetes mellitus [id number].010 [id number] Not available 05/10/2022 00:57:15 Brother Diabetes mellitus [id number] Not available 05/10/2022 00:57:15 Medical History No medical history recorded. Past Encounters Encounter ID Performer Location Encounter Start Date Encounter Closed Date Diagnosis/Indication Diagnosis SNOMED-CT Code Diagnosis ICD10 Code Diagnosis Note [id number] [facility] [address] [place] [address] 07/05/2021 00:00:00 07/07/2021 09:07:24 [id number] [facility] [place] [address] [place] [address] 08/21/2021 00:00:00 08/21/2021 16:54:21 [id number] [facility] [place] [address] [place] [address] 11/16/2021 00:00:00 11/16/2021 17:22:35 [id number] [facility] [place] [address] [place] [address] 01/19/2022 00:00:00 01/19/2022 16:36:04 [id number] [facility] [place] [address] [place] [address] 04/23/2022 00:00:00 05/06/2022 17:17:15 [id number] JHON Jordan [facility] [place] [address] [place] [address] 04/21/2024 15:58:03 04/21/2024 16:26:52 Type 2 diabetes mellitus without complication 840790978 E11.9 Hyperlipidemia 50847360 E78.5 Essential hypertension 82828272 I10 Peripheral vascular disease 090783658 I73.9 Adult heal th examination 461794629 Z00.00 Discussed medication compliance and routine follow up.Discuss ed healthy diet and routine exercise.Brittny glynnwed vaccine records and made recommenda tions as needed.Enc ouraged annual eye and dental exams, as well as twice yearly dental cleanings. Will check screening labs as listed below. [id number] JHON Jordan [facility] [place] [address] [place] [address] 04/22/2024 15:47:34 04/22/2024 16:05:47 Health Concerns Section Related Observation LastModified by Organization Detai ls LastModified Time None Recorded Concern Status LastModified by Organization Details LastModified Time None Recorded Advance Directives Directive None Recorded Payers Encounter Date Sequence Insurance Name Policy Number Policy Kathleen Covered Member ID Kathleen Member ID Guarantor Name 04/21/2024 1 [employer] [id number] Tanvir Mart Vital [id number] Tanvir Mart Vital 04/22/2024 1 [facility] [id number] Tanvir Mart Vital [id number] Tanvir Mart Vital Notes Date Note Type Note Provider Name and Address Organization Details Recorded Time 04/21/2024 text/html Patient is a 63 year old male that presents to the office for annual wellness. Patient reports he is doing well overall and has no concerns at this time. Patient is requesting labs for Vitamin B and D. Patient is also requesting a new referral for vascular surgery. Patient reports he was in the hospital and they were suppose to fix his legs but they never did the procedure. uqbu-ybfzktmTOT-d rderedColonoscopy - UTDFlu- UTDCovid- declinesTdap- UTDShingles- UTDPneumo- UTD COBY Jordan-C [address] [place] [address], [facility] [address], [place], [address], [place] - [email or web address] 04/21/2024 16:31:10
--- OUTSIDE RECORDS SUMMARY | 2024-04-30 10:31 | XMS_ITS | Encounter Summary ---
Author Organization [facility] Facility Care Team Providers Care Lease Analyst Name Role Phone No, Physician Primary Care Provider Oscar Pacheco MD Unavailable [phone] Chanell Paula MD Primary Care Provider Encounter Details Date Type Department Care Team (Latest Contact Info) Description 07/23/2017 Orders Only [facility]IN[facility] ProviderTodd MD [address] [place] [address] Social History Tobacco Use Types Packs/Day Years Used Date Smoking Tobacco: Never Smokeless Tobacco: Never Alcohol Use Standard Drinks/Week Comments Yes 0 (1 standard drink = 0.6 oz pur e alcohol) Sex and Gender Information Value Date Recorded Sex Assigned at Not on file 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 us Historical Provider [facility]KEON Final Result documented in this encounter Visit Diagnoses Not on filedocumented in this encounter Care Teams Lease Analyst Relationship Specialty Start Date End Date No, Physician PCP - General 07/23/17 12/15/17 Chanell Paula MD [address] [facility] [address] [place] [id number] PCP - General Family Medicine 12/16/17 Oscar Pacheco MD Consulting Physician Cardiology 12/16/17 documented as of this encounter
--- OUTSIDE RECORDS SUMMARY | 2024-04-30 10:31 | XMS_ITS | Encounter Summary ---
Author Organization [facility] Facility Care Team Providers Care Dumpster Operator Name Role Phone No, Physician Primary Care Provider [phone] Oscar Pacheco MD Unavailable [phone] Chanell Paula MD Primary Care Provider Encounter Details Date Type Department Care Team (Latest Contact Info) Description 06/24/2017 Orders Only [facility] CLINCONV ProviderTodd MD [address] [place] [address] Social History Tobacco Use Types Packs/Day Years Used Date Smoking Tobacco: Never Assessed Alcohol Use Standard Drinks/Week Comments Yes 0 (1 standard drink = 0.6 oz pur e alcohol) Sex and Gender Information Value Date Recorded Sex Assigned at Not on file 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 Historical Provider Final Res ult documented in this encounter Visit Diagnoses Not on filedocumented in this encounter Care Teams Dumpster Operator Relationship Specialty Start Date End Date No, Physician PCP - General 07/23/17 12/15/17 Chanell Paula MD [address] [facility] [address] [place] [address] PCP - General Family Medicine 12/16/17 Oscar Pacheco MD Consulting Physician Cardiology 12/16/17 documented as of this encounter
--- OUTSIDE RECORDS SUMMARY | 2024-04-30 10:31 | XMS_ITS | Continuity of Care Document ---
Author Organization [facility] Address [address] [place] [address] [address] [place] [address] Phone Care Team Providers Care Software Applications Developer Name Role Phone Rutledge OD, Jeremiah Unavailable Unavailable Advance Directives Directive Yes / No Effective Date File Name No Information Encounters Encounter Description Practice Location Reason(s) For Visit Diagnoses Date Provider Providers Copied on Encounter [facility], [address] [place] [address] [address], [place], [place], [id number], [place] tel:[phone] [facility] [place] No Information Dorian-1 0-200 5 Rutledge OD Jeremiah. [address] , [address], [place], [address], [place]. tel:[phone] Family History Family Member Type Diagnosis Age At Onset No Information Payers Payer name Insurance type Covered democrat ID Authoriza tion(s) No Information Social History Type Description Quantity Date Captured Comments Sex Male Smoking Status No Information Chief Complaint And Reason For Visit No Information Reason For Referral Reason For Referral No Information History Of Present Illness Encounter Date Complaint History Of Prese nt Illness No Information Functional Status Date Functional Assessmen t No Information Instructions Date Instruction Additional Infor mation No Information Assessments Type Assessment Date No Information Patient Care Teams Name Effective Dates (start - stop) Status Members No Information
--- OUTSIDE RECORDS SUMMARY | 2024-04-30 11:42 | XMS_ITS | Encounter Summary ---
Author Organization [facility] Facility Care Team Providers Care Coin Box Inspector Name Role Phone No, Physician Primary Care Provider [phone] Oscar Pacheco MD Unavailable [phone] Chanell Paula MD Primary Care Provider Encounter Details Date Type Department Care Team (Latest Contact Info) Description 07/23/2017 Orders Only [facility] CLINCONV ProviderTodd MD [address] [place] [address] Social History Tobacco Use Types Packs/Day Years Used Date Smoking Tobacco: Never Smokeless Tobacco: Never Alcohol Use Standard Drinks/Week Comments Yes 0 (1 standard drink = 0.6 oz pur e alcohol) Sex and Gender Information Value Date Recorded Sex Assigned at Not on file 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
--- OUTSIDE RECORDS SUMMARY | 2024-04-30 11:42 | XMS_ITS | Continuity of Care Document ---
Author Organization [facility] Address [address] [place] [address] [address] [place] [address] Phone Care Team Providers Care Legal Financial Specialist Name Role Phone Rutledge OD, Jeremiah Unavailable Unavailable Advance Directives Directive Yes / No Effective Date File Name No Information Encounters Encounter Description Practice Location Reason(s) For Visit Diagnoses Date Provider Providers Copied on Encounter [facility], [address] [place] [address] [address], [place], [place], [id number], [place] tel:[phone] [facility] [place] No Information Dorian-1 0-200 5 Rutledge OD Jeremiah. [address] [facility] [address], [place], [address], [place]. tel:[phone] Family History Family Member Type Diagnosis Age [...]
--- OUTSIDE RECORDS SUMMARY | 2024-04-30 11:42 | XMS_ITS | Encounter Summary ---
Author Organization [facility] Facility Care Team Providers Care Pharmaceutical Engineer Name Role Phone No, Physician Primary Care Provider [phone] Oscar Pacheco MD Unavailable [phone] Chanell Paula MD Primary Care Provider Encounter Details Date Type Department Care Team (Latest Contact Info) Description 10/06/2015 Orders Only [facility]INCON[facility] ProviderTodd MD [address] [place] [address] Social History Tobacco Use Types Packs/Day Years Used Date Smoking Tobacco: Never Assessed Alcohol Use Standard Drinks/Week Comments Yes 0 (1 standard drink = 0.6 oz pur e alcohol) Sex and Gender Information Value Date Recorded Sex Assigned at Not on file 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
--- OUTSIDE RECORDS SUMMARY | 2024-04-30 11:42 | XMS_ITS | Encounter Summary ---
Author Organization [facility] Facility Care Team Providers Care Business Intelligence Architect Name Role Phone No, Physician Primary Care Provider [phone] Oscar Pacheco MD Unavailable [phone] Chanell Paula MD Primary Care Provider Encounter Details Date Type Department Care Team (Latest Contact Info) Description 12/28/2002 Orders Only [facility] CLINCONV ProviderTodd MD [address] [place] [address] Social History Tobacco Use Types Packs/Day Years Used Date Smoking Tobacco: Never Assessed Sex and Gender Information Value Date Recorded Sex Assigned at Not on file 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
--- OUTSIDE RECORDS SUMMARY | 2024-04-30 11:42 | XMS_ITS | Encounter Summary ---
Author Organization [facility] Address [facility] [place] [address] Care Team Providers Care Filer Finish Name Role Phone Nakita Johnston MD Primary Care Provider [phone] Encounter Details Date Type Department Care Team (Late st Contact Info) Description 11/14/2021 [facility] [facility], [address] [address] Kendall Dooley MA Social History Tobacco Use [...] Results * CBC (OUTSIDE LAB) (07/05/2021) Pathologist [facility] WBC 6.7 HGB 16.7 HCT 50.4 PLT 333 07/05/2021 us Doc [facility] Abstract LAB-OUTSIDE/ABSTRACTED Final Result * HEPATIC FUNCTION PANEL (07/05/2021) Pathologist [facility] ALBUMIN S/P/B 4.5 3.5 - 5.0 ALKALINE PHOSPHATASE S/P/B 113 ALT 29 AST 31 BILIRUBIN DIRECT S/P/B 0.00 BILIRUBIN TOTAL S/P/B 0.60 TOTAL PROTEIN S/P/B 7.8 GLOBULIN 3.3 07/05/2021 us Doc [facility] Abstract LABORATORY Final Result * LIPID PANEL (07/05/2021) Pathologist [facility] CHOLESTEROL 210 HDL 44 TRIGLYCERIDES 311 LDL (CALCULATED) 104 07/05/2021 us Doc [facility] Abstract LABORATORY Final Result * (ABNORMAL) BASIC METABOLIC PANEL (07/05/2021) Pathologist [facility] SODIUM S/P/B 133 POTASSIUM S/P/B 4.4 CO2 23 CHLORIDE S/P/B 98 GLUCOSE 330 mg/dL CALCIUM S/P/B 9.6 BUN 16 CREATININE S/P/B 0.69(A) 0.7 - 1.3 EGFR NON-AFR. AMER. >60 <=90 07/05/2021 us Doc [facility] Abstract LABORATORY Final Result * HEMOGLOBIN, GLYCOSYLATED (07/05/2021) Pathologist [facility] HGB A1C 13.9 % 07/05/2021 us Doc [facility] Abstract LABORATORY Final Result documented in this encounter Visit Diagnoses Not on filedocumented in this encounter Care Teams Filer Finish Relationship Specialty Start Date End Date Nakita Johnston MD [address] [place] [address] [place] [address] PCP - General FAMILY PRACTICE 07/07/21 documented as of this encounter
--- OUTSIDE RECORDS SUMMARY | 2024-04-30 11:42 | XMS_ITS | Encounter Summary ---
Author Organization [facility] Facility Care Team Providers Care Kier Operator Name Role Phone No, Physician Primary Care Provider [phone] Oscar Pacheco MD Unavailable [phone] Chanell Paula MD Primary Care Provider Encounter Details Date Type Department Care Team (Latest Contact Info) Description 06/24/2017 Orders Only [facility] CLINCONV ProviderTodd MD [address] [place] [address] Social History Tobacco Use Types Packs/Day Years Used Date Smoking Tobacco: Never Assessed Alcohol Use Standard Drinks/Week Comments Yes 0 (1 standard drink = 0.6 oz pur e alcohol) Sex and Gender Information Value Date Recorded Sex Assigned at Not on file 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
--- OUTSIDE RECORDS SUMMARY | 2024-04-30 11:42 | XMS_ITS | Encounter Summary ---
Author Organization [facility] Facility Care Team Providers Care Ed Tech Name Role Phone No, Physician Primary Care Provider [phone] Oscar Pacheco MD Unavailable [phone] Chanell Paula MD Primary Care Provider Encounter Details Date Type Department Care Team (Latest Contact Info) Description 06/10/2017 Orders Only [facility] CLINCONV ProviderTodd MD [address] [place] [address] Social History Tobacco Use Types Packs/Day Years Used Date Smoking Tobacco: Never Assessed Alcohol Use Standard Drinks/Week Comments Yes 0 (1 standard drink = 0.6 oz pur e alcohol) Sex and Gender Information Value Date Recorded Sex Assigned at Not on file 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
--- OUTSIDE RECORDS SUMMARY | 2024-04-30 11:43 | XMS_ITS | Encounter Summary ---
Author Organization [facility] Address [facility] [place] [address] Care Team Providers Care Physicist Astrophysics Name Role Phone Nakita Johnston MD Primary Care Provider [phone] Reason for Referral * Surgical (Routine) - Closed Specialty Diagnoses / Procedures Referred By Contac t Referred To Contact Diagnoses PVD (peripheral vascular disease) ([facility]) Procedures Case request operating room: ENDARTERECTOMY FEMORAL ARTERY (right leg) Yash Costello MD [facility]. [facility] [address] [place] [address] Phone: tel: fax: Referral ID Status Reason Start Date Expiration Date Visits Re quested Visits Authorized [id number] Closed 11/26/2022 11/27/2023 1 1 Encounter Details Date Type Department Care Team (Late st Contact Info) Description 11/26/2022 Prep for Procedure [place] [facility] [facility], [facility] [address] [place], [place] [id number] Yash Costello MD [facility]. [facility] [address] [place] [address] Social History Tobacco Use Types [...] place to sleep or slept in a nursing home (including now)? No 07/26/2022 Sex and Gender [...] ABO/RH O POSITIVE 12/14/2022 4:22 PM CDT [facility] ANTIBODY SCREEN NEGATIVE 12/14/2022 4:22 PM CDT [facility] SAMPLE EXPIRATION 12/27/2022,2 359 12/24/2022 7:33 AM CDT [facility] BB COMMENT NO HISTORY OF TRANSFUSIONS , OR ANTIBODIES, NEW SPECIMEN NOT NEEDED 12/24/2022 7:33 AM CDT [facility] 12/14/2022 2:57 PM CDT Yash Costello MD BLOOD BANK TEST ORDERABLES Final Result [facility] [address] [place] [address], * (ABNORMAL) COMPREHENSIVE METABOLIC PANEL (12/14/2022 2:57 PM CDT) GLUCOSE 289(H) 70 - 99 MG/DL 12/14/2022 3:42 PM CDT [facility] BUN 16 7 - 18 MG/DL 12/14/2022 3:42 PM CDT [facility] CREATININE S/P/B 1.00 0.7 - 1.3 MG/DL 12/14/2022 3:42 PM CDT [facility] SODIUM S/P/B 135(L) 136 - 145 MMOL/L 12/14/2022 3:42 PM CDT [facility] POTASSIUM S/P/B 3.6 3.5 - 5.1 MMOL/L 12/14/2022 3:42 PM CDT [facility] CHLORIDE S/P/B 104 100 - 108 MMOL/L 12/14/2022 3:42 PM CDT [facility] CO2 25.6 21 - 32 MMOL/L 12/14/2022 3:42 PM CDT [facility] CALCIUM S/P/B 8.4(L) 8.5 - 10.1 MG/DL 12/14/2022 3:42 PM T [facility] BILIRUBIN TOTAL S/P/B 1.4(H) 0.2 - 1.2 MG/DL 12/14/2022 3:[address] [facility] Comment: THIS ASSAY IS NOT RECOMMENDED FOR PATIENTS UNDERGOING TREATMENT WITH ELTROMBOPAG DUE TO THE POTENTIAL FOR FALSELY ELEVATED RESULTS. TOTAL PROTEIN S/P/B 6.9 6.4 - 8.2 G/DL 12/14/2022 3:42 PM T [facility] ALBUMIN S/P/B 3.6 3.4 - 5.0 G/DL 12/14/2022 3:42 PM T [facility] AST 18 15 - 37 U/L 12/14/2022 3:[address] [facility] ALT 27 16 - 60 U/L 12/14/2022 3:[address] [facility] ALKALINE PHOSPHATASE S/P/B 71 50 - 136 U/L 12/14/2022 3:[address] [facility] ANION GAP 5.4 5 - 15 MMOL/L 12/14/2022 3:[address] [facility] BUN CREATININE RATIO 16.0 6 - 26 12/14/2022 3:[address] [facility] A/G RATIO 1.1 1.0 - 2.0 RATIO 12/14/2022 3:[address] [facility] GFR ESTIMATE 85(L) >90 ML/MIN/1.7 3 M2 12/14/2022 3:[address] [facility] Comment: NOTE: eGFR is not calculated for patients <18 years of age. This is an estimated GFR calculation using the new CKD EPI creatinine equation without race and so does not require a correction factor for race. This estimated GFR should not be used for calculating drug doses. 12/14/2022 2:57 PM CDT Yash Costello MD LABORATORY Final Result [facility] [address] [place] [address], [place] [phone] * PROTIME/INR, VENOUS (12/14/2022 2:57 PM CDT) PROTIME 11.2 10.2 - 12.9 SEC 12/14/2022 3:45 PM CDT [facility] INR 1.0 12/14/2022 3:45 PM CDT [facility] Comment: Recommended INR Therapeutic Goals: 2.0-3.0 Routine Therapy 2.5-3.5 Mechanical Prosthetic Valves (High Risk) 12/14/2022 2:57 PM CDT Yash Costello MD LABORATORY Final Result Performing Organization Address City/[facility]/ZIP Co de Phone Number [facility] [address] [place] [address], [place] [phone] * CBC W/DIFF AUTOMATED (12/14/2022 2:57 PM CDT) WBC 6.9 4.5 - 11.0 x10'3/uL 12/14/2022 3:22 PM CDT [facility] RBC 5.00 4.70 - 6.10 x10'6/uL 12/14/2022 3:22 PM CDT [facility] HGB 15.5 14.0 - 18.0 G/DL 12/14/2022 3:22 PM CDT [facility] HCT 46.1 43.0 - 54.0 % 12/14/2022 3:22 PM CDT [facility] MCV 92.2 80.0 - 94.0 FL 12/14/2022 3:22 PM CDT [facility] MCH 31.0 27.0 - 31.0 PG 12/14/2022 3:22 PM CDT [facility] MCHC 33.6 32.0 - 36.0 G/DL 12/14/2022 3:22 PM CDT [facility] RDW 12.5 11.5 - 14.5 % 12/14/2022 3:22 PM CDT [facility] PLT 231 130 - 400 x10'3/uL 12/14/2022 3:22 PM CDT [facility] MPV 10.0 9.3 - 12.2 FL 12/14/2022 3:22 PM CDT [facility] DIFFERENTIAL TYPE AUTOMATED DIFFERENTIAL 12/14/2022 3:22 PM CDT [facility] NEUTROPHILS % 67.4 % 12/14/2022 3:22 PM CDT [facility] LYMPHOCYTES % 22.7 % 12/14/2022 3:22 PM CDT [facility] MONOCYTES % 6.3 % 12/14/2022 3:22 PM CDT [facility] EOSINOPHILS 2.5 % 12/14/2022 3:22 PM CDT [facility] BASOPHILS 0.7 % 12/14/2022 3:22 PM CDT [facility] IMMATURE GRANS % 0.4 % 12/15/19 3:22 PM CDT [facility] ABS. NEUTROPHILS TOTAL 4.67 1.80 - 7.70 x10'3/uL 12/14/2022 3:22 PM CDT [facility] ABS. LYMPHOCYTES 1.57 1.00 - 4.80 x10'3/uL 12/14/2022 3:22 PM CDT [facility] ABS. MONOCYTES 0.44 0.30 - 0.82 x10'3/uL 12/14/2022 3:22 PM CDT [facility] ABS. EOSINOPHILS 0.17 0.04 - 0.54 x10'3/uL 12/14/2022 3:22 PM CDT [facility] ABS. BASOPHILS 0.05 0.01 - 0.08 x10'3/uL 12/14/2022 3:22 PM CDT [facility] ABS. IMMATURE GRANULOCYTES 0.03 0.00 - 0.49 x10'3/uL 12/14/2022 3:22 PM CDT [facility] 12/14/2022 2:57 PM CDT us Yash Costello MD LABORATORY Final Result [facility] [address] [place] [address], [place] [phone] * MRSA SCREENING (12/14/2022 2:56 PM CDT) SPEC DESCRIPTION NASAL 12/14/2022 2:32 PM CDT [facility] SPECIAL REQUESTS NO SPECIAL REQUEST 12/14/2022 2:32 PM CDT [facility] CULTURE RESULT NO METHICILLIN RESISTANT STAPHYLOCOCCUS AUREUS ISOLATED 12/15/2022 1:22 PM CDT [facility] SPECIMEN FROM INTERNAL NOSE / Unknown 12/14/2022 2:56 PM CDT 12/14/2022 2:57 PM CDT us Yash Costello MD MICROBIOLOGY - GENERAL ORDERABLE S Final Result [facility] [address] [place] [address], documented in this encounter Visit Diagnoses Diagnosis PVD (peripheral vascular disease) (CMS/HCC)- Primary Peripheral vascular disease, unspecified documented in this encounter Care Teams Physicist Astrophysics Relationship Specialty Start Date End Date Nakita Johnston MD [address] [place] [address] [place] [address] PCP - General FAMILY PRACTICE 07/07/21 documented as of this encounter
--- OUTSIDE RECORDS SUMMARY | 2024-04-30 11:43 | XMS_ITS | Clinical Summary ---
Author Organization [facility] Address [address] [place] [address] Care Team Providers Care Generator Operator Straight Bevel Gear Name Role Phone Nakita Johnston MD Primary Care Provider [phone] Allergies No known active allergies Medications JARDIANCE [...] Hyperlipidemia due to type 2 diabetes mellitus ([facility]) 08/19/2017 Ischemic cardiomyopathy 08/19/2017 History of myocardial [...] declined 12/24/2022 How often do you attend moravian or episcopal serv ices? Patient declined 12/24/2022 Do you belong to any clubs o r organizations such as moravian groups, unions, fraternal or athletic groups, or [...] medical care, and heating? Patient declined 12/24/2022 [facility] - Occupational [...] place to sleep or slept in a senior care (including now)? Patient refused 12/24/2022 Sex and Gender Information Value Date Recorded Sex Assigned at Not on file Legal Sex Male 9:57 AM CDT Gender Identity Not on file Sexual Orientation Not on file Last Filed Vital Signs Vital Sign Reading Time Taken Comments Blood Pressure 138/79 05/09/2023 7:23 AM HOME ENERGY INSPECTOR Pulse 92 05/09/2023 7:23 AM HOME ENERGY INSPECTOR Temperature 36.9 C (98.4 F) 05/09/2023 7:23 AM HOME ENERGY INSPECTOR Respiratory Rate 17 05/09/2023 7:23 AM HOME ENERGY INSPECTOR Oxygen Saturation 98% 05/09/2023 7:23 AM HOME ENERGY INSPECTOR Inhaled Oxygen Concentration - - Weight 77.1 kg (170 lb) 05/09/2023 7:23 AM HOME ENERGY INSPECTOR Height 170.2 cm (5' 7 ) 05/09/2023 7:23 AM HOME ENERGY INSPECTOR Body Mass Index 26.63 05/09/2023 7:23 AM HOME ENERGY INSPECTOR Plan of Treatment Health Maintenance Due Date [...] Arguelles RN Medical Devices Implanted Type Area Electrical Products Sales Engineer Device Identifier Shelf Expiration Date Model / Serial / Lot Patch Nasima. Vasc. Vascu-Guard 0.8cm X 8cm - [id number] Implanted:Qty: 1 on 12/24/2022 by Yash Costello MD at [facility] Mesh Right: Groin 99Bill - BIOSCIENCE 07/19/2023 [id number] / / [id number] Description:Right femoral ar chelsey vascular repair patch Procedures Procedure Name Priority Date/Time Associated Diagnosis Comments HEMOGLOBIN, GLYCOSYLATED Routine 07/27/2022 7:27 AM CDT LIPID PANEL Routine 11/08/2021 11:14 AM CDT Peripheral vascular disease Ischemic cardiomyopathy Hyperlipidemia Hyperlipidemia due to type 2 diabetes mellitus ([facility]) from Last 3 Months or Most Recently Relevant to Health Maintenance Results * (ABNORMAL) HEMOGLOBIN, GLYCOSYLATED (07/27/2022 7:27 AM CDT) HGB A1C 11.7(H) <5.7 % 07/27/2022 10:19 AM CDT [facility] Comment: ADA GUIDELINES 2010 5.7 TO 6.4% INCREASED RISK OF DIABETES > OR = 6.5% CONSISTENT WITH DIABETES ESTIMATED AVG GLUCOSE 289 mg/dL 07/27/2022 10:19 AM CDT [facility] 07/27/2022 7:27 AM CDT Nakita SIMPSON LABORATORY Final Result [facility] [address] [place] [address], [place] [phone] * (ABNORMAL) LIPID PANEL (11/08/2021 11:14 AM CDT) CHOLESTEROL 105 <200 MG/DL 11/08/2021 12:05 PM CDT [facility] TRIGLYCERIDES 196(H) <150 MG/DL 11/08/2021 12:05 PM CDT [facility] HDL 39(L) >40.0 MG/DL 11/08/2021 12:05 PM CDT [facility] LDL (CALCULATED) 27 <100 MG/DL 11/08/2021 12:05 PM CDT [facility] NON HDL CHOLESTEROL 66 <130 MG/DL 11/08/2021 12:05 PM CDT [facility] CHOL/HDL RATIO 2.7 0.0 - 4.5 11/08/2021 12:05 PM CDT [facility] VLDL CALCULATION 39 5 - 55 MG/DL 11/08/2021 12:05 PM T [facility] LIPID INTERPRETATION 11/08/2021 12:05 PM T [facility] Comment: NIH CONCENSUS REPORT RECOMMENDATIONS: ADULT CHILD LOW RISK: CHOLESTEROL <200 <170 TRIGLYCERIDE <150 --- HDL >=60 --- LDL <100 <110 BORDERLINE: CHOLESTEROL 200-239 170-199 TRIGLYCERIDE 150-199 --- HDL 40-59 --- LDL 100-159 110-129 HIGH RISK: CHOLESTEROL >=240 >=200 TRIGLYCERIDE >=200 --- HDL <40 --- LDL >=160 >=130 11/08/2021 11:1 4 AM CDT us Salome Thomas MD LABORATORY Final Result [facility] [address] [place] [address], from Last 3 Months or Most Recently Relevant to Health Maintenance Advance Directives * Full Code (Latest Code Status on File) Date Activated Date Inactivated Comments 10/18/2022 3:20 PM 10/18/2022 7:57 PM * Full Code Date Activated Date Inactivated Comments 07/26/2022 2:09 PM 07/27/2022 2:16 PM Care Teams Generator Operator Straight Bevel Gear Relationship Specialty Start Date End Date Nakita Johnston MD [address] [place] [address] [place] [address] PCP - General FAMILY PRACTICE 07/07/21
--- OUTSIDE RECORDS SUMMARY | 2024-04-30 11:43 | XMS_ITS | Clinical Summary ---
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 Gender Identity Not on file Sexual Orientation [...] 2023 04/08/2016 Medical Devices Implanted Type Area Lens Gauger Device Identifier Shelf Expiration Date Model / Serial / Lot System Coronary Stent Resolute Gianni Pebax Biolinx Zotarolimus Eluting [place] L38 Mm L140 Cm Od.91-.69 Mm Id2.5 Mm Small Vessel Rapid Exchange Radiopaque 1 Access Port Balloon Accepts .014 In Guidewire 5 Fr Guide Catheter - [id number] Implanted:Qty: 1 on 07/25/2017 by Cameron Torrez MD at [facility] [employer] X 04/26/2019 [id number] X / / [id number] System Coronary Stent Resolute Clio Pebax Biolinx Zotarolimus Eluting [place] L30 Mm L140 Cm Od.91-.69 Mm Id2.25 Mm Small Vessel Rapid Exchange Radiopaque 1 Access Port Balloon Accepts .014 In Guidewire 5 Fr Guide Catheter - [id number] Implanted:Qty: 1 on 07/25/2017 by Cameron Torrez MD at [facility] [employer] X 12/18/2019 [id number] X / / [id number] System Coronary Stent Resolute Gianni Pebax Biolinx Zotarolimus Eluting [place] L15 Mm L140 Cm Od.91-.69 Mm Id2.75 Mm Medium Vessel Rapid Exchange Radiopaque 1 Access Port Balloon Accepts .014 In Guidewire 5 Fr Guide Catheter - [id number] Implanted:Qty: 1 on 07/25/2017 by Cameron Torrez MD at [facility] [employer] X 02/04/2019 [id number] X / / [id number] System Coronary Stent Resolute Clio Pebax Biolinx Zotarolimus Eluting [place] L15 Mm L140 Cm Od.91-.69 Mm Id2.5 Mm Small Vessel Rapid Exchange Radiopaque 1 Access Port Balloon Accepts .014 In Guidewire 5 Fr Guide Catheter - [id number] Implanted:Qty: 1 on 07/25/2017 by Cameron Torrez MD at [facility] [employer] X 03/22/2019 [id number] X / / [id number] Procedures Procedure Name Priority Date/Time Associated Diagnosis Comments POCT LIPID PANEL Routine 06/06/2020 2:38 PM CDT 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) EGFR Routine 09/01/2018 11:14 AM CDT PVC (premature ventricular contraction) from Last 3 Months or Most Recently Relevant to Health Maintenance Results * POCT lipid panel (06/06/2020 2:38 PM CDT) [facility] Cholesterol, POC 164 mg/dL HDL, POC 32 mg/dL Triglycerides, POC 238 mg/dL LDL Cholesterol POC 84 mg/dL Chol/HDL Ratio, POC 5.1 Non-HDL Cholesterol, POC 132 mg/dL Cholesterol Total, POC 164 mg/dL Capillary blood 06/06/2020 2 :38 PM CDT us Oscar Pacheco MD POINT OF CARE TEST ORDERAB LES Final Result * eGFR (09/01/2018 11:14 AM CDT) [facility] eGFR 99 mL/min/1.7 3 m2 [facility] Comment: Interpretive Data Reference Interval Normal >/= 90 mL/min/1.73m2 Mildly decreased* 60 - 89 mL/min/1.73m2 Mildly to moderately decreased 45 - 59 mL/min/1.73m2 Moderately to severely decreased 30 - 44 mL/min/1.73m2 Severely decreased 15 - 29 mL/min/1.73m2 Kidney Failure < 15 mL/min/1.73m2 *Relative to young adult level If -Belarusian multiply value by 1.16. Estimated glomerular filtration [...] BLOOD ORDERABLES Final Result Performing Organization Address City/State/[facility] Co de Phone Number [facility] [address] [place] [address] from Last 3 Months or Most Recently Relevant to Health Maintenance Insurance [facility] UHC CHOICE PLUS [address] Advance Directives For more information, please contact: [phone] Documents on File Type Date Recorded Patient Engraver Machine Expl anation ADVANCE DIRECTIVE 08/19/2017 1:44 PM Power of Elephant Keeper ADVANCE DIRECTIVE 06/25/2017 12:00 AM REBEKA R OF GRAPHIC PRE PRESS TRADES WORKER FINANCIAL/MEDICAL * Full Code (Latest Code Status on File) Date Activated Date Inactivated Comments 07/24/2017 2:16 AM 07/26/2017 3:45 PM Care Teams Fourdrinier Operator Relationship Specialty Start Date End Date Chanell Paula MD [address] [facility] [address] [place] [address] PCP - General Family Medicine 12/16/17 Oscar Pacheco MD Consulting Physician Cardiology 12/16/17
--- OUTSIDE RECORDS SUMMARY | 2024-04-30 11:43 | XMS_ITS | Referral Summary ---
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 Gender Identity Not on file Sexual [...] on file Medical Devices Implanted Type Area Ship Worker Device Identifier Shelf Expiration Date Model / Serial / Lot System Coronary Stent Resolute [place] Pebax Biolinx Zotarolimus Eluting [place] L38 Mm L140 Cm Od.91-.69 Mm Id2.5 Mm Small Vessel Rapid Exchange Radiopaque 1 Access Port Balloon Accepts .014 In Guidewire 5 Fr Guide Catheter - [id number] Implanted:Qty: 1 on 07/25/2017 by Cameron Torrez MD at [facility] [employer] X 04/26/2019 [id number] X / / [id number] System Coronary Stent Resolute [place] Pebax Biolinx Zotarolimus Eluting [place] L30 Mm L140 Cm Od.91-.69 Mm Id2.25 Mm Small Vessel Rapid Exchange Radiopaque 1 Access Port Balloon Accepts .014 In Guidewire 5 Fr Guide Catheter - [id number] Implanted:Qty: 1 on 07/25/2017 by Cameron Torrez MD at [facility] [employer] X 12/18/2019 [id number] X / / [id number] System Coronary Stent Resolute [place] Pebax Biolinx Zotarolimus Eluting [place] L15 Mm L140 Cm Od.91-.69 Mm Id2.75 Mm Medium Vessel Rapid Exchange Radiopaque 1 Access Port Balloon Accepts .014 In Guidewire 5 Fr Guide Catheter - [id number] Implanted:Qty: 1 on 07/25/2017 by Cameron Torrez MD at [facility] [employer] X 02/04/2019 [id number] X / / [id number] System Coronary Stent Resolute Gian[place] Pebax Biolinx Zotarolimus Eluting [place] L15 Mm L140 Cm Od.91-.69 Mm Id2.5 Mm Small Vessel Rapid Exchange Radiopaque 1 Access Port Balloon Accepts .014 In Guidewire 5 Fr Guide Catheter - [id number] Implanted:Qty: 1 on 07/25/2017 by Cameron Torrez MD at [facility] [employer] X 03/22/2019 [id number] X / / [id number] Procedures Procedure Name Priority Date/Time Associated Diagnosis Comments POCT LIPID PANEL Routine 06/06/2020 2:38 PM CDT 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 Estimated glomerular filtration [...] Pacheco MD LAB BLOOD ORDERABLES Final Result [facility] [address] Department [place] [address] from Last 3 Months or Most Recently Relevant to Health Maintenance Insurance [facility] [id number] Member Subscriber Plan / Payer (Ef fective 2019-Present) Name:Tanvir Wu Relation to Subscriber:Self Name:Tanvir Wu Payer ID:[id number] ([facility]) Type:[facility] HMO/PPO Address: [address] Advance Directives For more information, please contact: [phone] Documents on File Type Date Recorded Patient Subject Scientific Research Expl anation ADVANCE DIRECTIVE 08/19/2017 1:44 PM Power of Time Clerk ADVANCE DIRECTIVE 06/25/2017 12:00 AM REBEKA R OF DRUG CLERK FINANCIAL/MEDICAL * Full Code (Latest Code Status on File) Date Activated Date Inactivated Comments 07/24/2017 2:16 AM 07/26/2017 3:45 PM Care Teams Hard Candy Spinner Relationship Specialty Start Date End Date Chanell Paula MD [address] [facility] [address] [place] [address] PCP - General Family Medicine 12/16/17 Oscar Pacheco MD Consulting Physician Cardiology 12/16/17
--- NOTE | 2024-04-30 11:46 | ED_ITS ---
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 Reports this has been an ongoing issue over the last several months. Reports worsening the last couple of days. Reports tingling in his feet. Denies decreased ROM. Reports his vascular surgeon is at [facility]. Reports he is not currently taking Aspirin. <ULI Dyer Last Filed: 05/02/24 02:49> Related Data Home medications: Home Medications ?Medication ?Instructions ?Recorded ?Confirmed ?Last Taken ?Type aspirin 81 mg tablet,delayed 81 mg PO DAILY 03/03/19 05/01/24 Unknown History release (Aspir-Low) lisinopril 40 mg tablet 40 mg PO DAILY 03/03/19 05/01/24 04/29/24 History metoprolol succinate 100 mg 100 mg PO DAILY 03/03/19 05/01/24 04/29/24 History tablet,extended release 24 hr <ULI Dyer Last Filed: 05/02/24 02:49> Allergies/Adverse reactions: Allergies Allergy/AdvReac Type Severity Reaction Status Date / Time No Known Allergies Allergy Verified 04/30/24 11:10 <ULI Dyer Last Filed: 05/02/24 02:49> Review of Systems 2 Review of Systems: CONSTITUTIONAL: Denies fever SKIN: Denies rash MUSCULOSKELETAL: Reports joint pain, and myalgia. NEUROLOGIC: Denies numbness, or weakness. 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 Mixed hyperlipidemia Neuropathic pain of both feet PAD (peripheral artery disease) Tobacco use disorder Type 2 diabetes mellitus with hyperglycemia Type 2 diabetes mellitus with hyperglycemia, with long-term current use of insulin Type 2 diabetes mellitus with other circulatory complications Type 2 diabetes mellitus with proteinuria <Virginia Regan PA-C - Last Filed: 05/02/24 02:49> Surgical History Surgical History: Surgical History History of angioplasty of peripheral vessel L superficial femoral artery S/P CABG x 5 <Virginia Regan PA-C - Last Filed: 05/02/24 02:49> Family History Family History: Family History Father Hypertension Family history of diabetes mellitus in first degree relative Mother Family history of heart disease in male family member before age 55, Onset Age: 29 Patient's mother is Other Diabetes mellitus Family history of elevated blood lipids <ULI Dyer Last Filed: 05/02/24 02:49> Social History Social History: Social History (Updated 04/28/21 @ 15:51 by Madelin Gregory) Social History: Single Smoking status: Former smoker Tobacco type: cigarettes Second hand tobacco smoke exposure: No Smoking end date: 03/11/15 Alcohol intake: never Substance use: never Substance use type: does not use Living arrangements: with family Occupation/Education: occupation Gender identity (if verbalized by the patient): Male Sexual Orientation (if Verbalized by the Patient): Straight or Heterosexual <Virginia Regan PA-C - Last Filed: 05/02/24 02:49> Exam 2 Narrative: GENERAL: Well-appearing, well-nourished, and in no acute distress. HEAD: Normocephalic, atraumatic. EYES: EOMI. CHEST: Clear to auscultation. No respiratory distress. No wheezes rales or rhonchi HEART: Regular rate and rhythm. No murmur heard. Normal peripheral pulses. EXTREMITIES: Normal range of motion. No edema or erythema. Unable to obtain DP or PT pulses via doppler. Feet are cold SKIN: Warm, dry, no rash. NEURO: No focal deficits. Alert and oriented x3. PSYCH: Normal mood and affect <Virginia Regan PA-C - Last Filed: 05/02/24 02:49> Course Course Emergency Course: patient updated on his workup and recommendation for transfer for evaluation by vascular surgery <Virginia Regan PA-C - Last Filed: 05/02/24 02:49> patient updated on his workup and recommendation for transfer for evaluation by vascular surgery 05/01/24: Still waiting placement at [facility]. Patient did receive some morphine for pain today. SINCERE to Dr. Bautista. <Timothy You MD - Last Filed: 05/01/24 18:24> CBX OPERATOR/PA Physician Supervision For this patient encounter, I reviewed the CBX OPERATOR or PA documentation, treatment plan, and medical decision making and had [id number] time with this patient. I performed all aspects of the MDM as documented. <Neel Bautista MD - Last Filed: 05/01/24 00:57> Consultations Consultation #1: Spoke with Dr. Chaidez about patient and workup who accepts patient as transfer, will be awaiting an open bed <Virginia Regan PA-C - Last Filed: 05/02/24 02:49> Date: 04/30/24 <Virginia Regan PA-C - Last Filed: 05/02/24 02:49> Consultation #2: Spoke with the hospitalist at [facility]. Patient now has a bed < Virginia Regan PA-C - Last Filed: 05/02/24 02:49> Date: 05/01/24 <Virginia Regan PA-C - Last Filed: 05/02/24 02:49> Vital Signs Vital signs: Vital Signs Temperature 97.6 F 04/30/24 10:21 Pulse Rate 100 04/30/24 10:21 Respiratory Rate 18 04/30/24 10:21 Blood Pressure 135/74 04/30/24 10:21 Pulse Oximetry 100 04/30/24 10:21 Oxygen Delivery Room Air 04/30/24 10:21 Temperature 97.6 F 05/01/24 09:44 Pulse Rate 74 05/01/24 22:29 Respiratory Rate 16 05/01/24 22:29 Blood Pressure 146/75 H 05/01/24 22:29 Pulse Oximetry 100 05/01/24 22:29 Oxygen Delivery Room Air 04/30/24 10:21 <Virginia Regan PA-C - Last Filed: 05/02/24 02:49> Vital Signs Temperature 97.6 F 04/30/24 10:21 Pulse Rate 100 04/30/24 10:21 Respiratory Rate 18 04/30/24 10:21 Blood Pressure 135/74 04/30/24 10:21 Pulse Oximetry 100 04/30/24 10:21 Oxygen Delivery Room Air 04/30/24 10:21 Temperature 97.6 F 05/01/24 09:44 Pulse Rate 74 05/01/24 22:29 Respiratory Rate 16 05/01/24 22:29 Blood Pressure 146/75 H 05/01/24 22:29 Pulse Oximetry 100 05/01/24 22:29 Oxygen Delivery Room Air 04/30/24 10:21 <Neel Bautista MD - Last Filed: 05/01/24 00:57> Vital Signs Temperature 97.6 F 04/30/24 10:21 Pulse Rate 100 04/30/24 10:21 Respiratory Rate 18 04/30/24 10:21 Blood Pressure 135/74 04/30/24 10:21 Pulse Oximetry 100 04/30/24 10:21 Oxygen Delivery Room Air 04/30/24 10:21 Temperature 97.6 F 05/01/24 09:44 Pulse Rate 74 05/01/24 22:29 Respiratory Rate 16 05/01/24 22:29 Blood Pressure 146/75 H 05/01/24 22:29 Pulse Oximetry 100 05/01/24 22:29 Oxygen Delivery Room Air 04/30/24 10:21 <Timothy You MD - Last Filed: 05/01/24 18:24> MDM - Extremity (Nontraumatic) MDM Narrative Medical decision making narrative: Patient presents to the emergency department for acute on chronic lower extremity pain. History of peripheral arterial disease. Unable to Doppler PT and DP pulses. Patient's feet are cold bilaterally. He does have normal range of motion and is not having any significant sensory issues. Cbc and metabolic panel without concerning findings. CTA aorta runoff: 1. 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 No significant stenosis of superior mesenteric artery. 2. Severe stenosis of right common femoral artery. 3. Total occlusion of right superficial femoral artery. 4. Moderate stenosis of proximal left internal iliac artery. 5. Moderate stenosis of left common femoral artery. 6. Total occlusion of left superficial femoral artery. Spoke with Dr. Chaidez about patient and workup who accepts patient as transfer, will be awaiting an open bed. Patient updated on his workup and recommendation for transfer for evaluation by vascular surgery. Awaiting bed placement <Virginia Regan PA-C - Last Filed: 05/02/24 02:49> Differential Diagnosis Differential diagnosis: Likely other (peripheral arterial disease, arterial occlusion, arterial stenosis) <Virginia Regan PA-C - Last Filed: 05/02/24 02:49> Lab Data Attestation: I reviewed the patient's lab results. <Virginia Regan PA-C - Last Filed: 05/02/24 02:49> Result diagrams: 04/30/24 12:00 04/30/24 12:00 <Virginia Regan PA-C - Last Filed: 05/02/24 02:49> Labs: Lab Results 04/30/24 04/30/24 04/30/24 Range/Units 12:00 12:36 18:18 WBC 8.2 (4.5-10.0) K/mm3 RBC 5.43 (4.6-6.20) M/mm3 Hgb 17.3 D (14.0-18.0) g/dL Hct 50.6 (42.0-52.0) % MCV 93.2 (80-100) fl MCH 31.9 (26-34) pg MCHC 34.2 (32-36) g/dl RDW 12.6 (11.5-14.5) % Plt Count 269 (150-375) k/mm3 MPV 9.7 (7.4-10.4) fl Immature Gran % (Auto) 0.4 (0-0.5) % Neut % (Auto) 67.8 (45.5-73.1) % Lymph % (Auto) 22.2 (18.3-44.2) % Clinton % (Auto) 8.1 (2.6-8.5) % Eos % (Auto) 1.0 (0-4.4) % Baso % (Auto) 0.5 (0.2-1.2) % Lymph # (Auto) 1.81 (0.9-3.2) K/mm3 Clinton # (Auto) 0.7 H (0.1-0.6) K/mm3 Eos # (Auto) 0.1 (0-0.3) K/mm3 Baso # (Auto) 0.0 (0.0-0.1) K/mm3 Abs Immat Gran (auto) 0.03 (0.00-0.031) K/mm3 Absolute Neuts (auto) 5.5 (1.3-6.7) K/mm3 Absolute Nucleated RBC 0.000 (0.0-0.012) K/mm3 Nucleated RBC % 0.0 (0.0-0.2) % PT 12.7 (11.1-14.7) Seconds INR 0.9 APTT 25.9 (22.3-36.8) Seconds Sodium 135 L (137-145) mmol/L Potassium 4.1 (3.4-5.0) mmol/L Chloride 102 (98-107) mmol/L Carbon Dioxide 20 L (22-30) mmol/L Anion Gap 13 H (4-12) mmol/L BUN 16 (9-20) mg/dL Creatinine 0.56 L (0.7-1.3) mg/dL Estim Creat Clear Calc Not Reportable Estimated GFR > 60 (59 - ) Glucose 143 H (65-110) mg/dL POC Capillary Glucose 120 H (65-105) mg/dl Calcium 8.8 (8.4-10.2) mg/dL Total Bilirubin 0.8 (0.2-1.3) mg/dL AST 24 (17-59) U/L ALT 17 (6-50) U/L Alkaline Phosphatase 107 (38-126) U/L Total Protein 7.0 (6.3-8.2) g/dL Albumin 3.9 (3.5-5.1) g/dL <Virginia Regan PA-C - Last Filed: 05/02/24 02:49> Lab Results 04/30/24 04/30/24 04/30/24 Range/Units 12:00 12:36 18:18 WBC 8.2 (4.5-10.0) K/mm3 RBC 5.43 (4.6-6.20) M/mm3 Hgb 17.3 D (14.0-18.0) g/dL Hct 50.6 (42.0-52.0) % MCV 93.2 (80-100) fl MCH 31.9 (26-34) pg MCHC 34.2 (32-36) g/dl RDW 12.6 (11.5-14.5) % Plt Count 269 (150-375) k/mm3 MPV 9.7 (7.4-10.4) fl Immature Gran % (Auto) 0.4 (0-0.5) % Neut % (Auto) 67.8 (45.5-73.1) % Lymph % (Auto) 22.2 (18.3-44.2) % Clinton % (Auto) 8.1 (2.6-8.5) % Eos % (Auto) 1.0 (0-4.4) % Baso % (Auto) 0.5 (0.2-1.2) % Lymph # (Auto) 1.81 (0.9-3.2) K/mm3 Clinton # (Auto) 0.7 H (0.1-0.6) K/mm3 Eos # (Auto) 0.1 (0-0.3) K/mm3 Baso # (Auto) 0.0 (0.0-0.1) K/mm3 Abs Immat Gran (auto) 0.03 (0.00-0.031) K/mm3 Absolute Neuts (auto) 5.5 (1.3-6.7) K/mm3 Absolute Nucleated RBC 0.000 (0.0-0.012) K/mm3 Nucleated RBC % 0.0 (0.0-0.2) % PT 12.7 (11.1-14.7) Seconds INR 0.9 APTT 25.9 (22.3-36.8) Seconds Sodium 135 L (137-145) mmol/L Potassium 4.1 (3.4-5.0) mmol/L Chloride 102 (98-107) mmol/L Carbon Dioxide 20 L (22-30) mmol/L Anion Gap 13 H (4-12) mmol/L BUN 16 (9-20) mg/dL Creatinine 0.56 L (0.7-1.3) mg/dL Estim Creat Clear Calc Not Reportable Estimated GFR > 60 (59 - ) Glucose 143 H (65-110) mg/dL POC Capillary Glucose 120 H (65-105) mg/dl Calcium 8.8 (8.4-10.2) mg/dL Total Bilirubin 0.8 (0.2-1.3) mg/dL AST 24 (17-59) U/L ALT 17 (6-50) U/L Alkaline Phosphatase 107 (38-126) U/L Total Protein 7.0 (6.3-8.2) g/dL Albumin 3.9 (3.5-5.1) g/dL <Neel Bautista MD - Last Filed: 05/01/24 00:57> Lab Results 04/30/24 04/30/24 04/30/24 Range/Units 12:00 12:36 18:18 WBC 8.2 (4.5-10.0) K/mm3 RBC 5.43 (4.6-6.20) M/mm3 Hgb 17.3 D (14.0-18.0) g/dL Hct 50.6 (42.0-52.0) % MCV 93.2 (80-100) fl MCH 31.9 (26-34) pg MCHC 34.2 (32-36) g/dl RDW 12.6 (11.5-14.5) % Plt Count 269 (150-375) k/mm3 MPV 9.7 (7.4-10.4) fl Immature Gran % (Auto) 0.4 (0-0.5) % Neut % (Auto) 67.8 (45.5-73.1) % Lymph % (Auto) 22.2 (18.3-44.2) % [place] % (Auto) 8.1 (2.6-8.5) % Eos % (Auto) 1.0 (0-4.4) % Baso % (Auto) 0.5 (0.2-1.2) % Lymph # (Auto) 1.81 (0.9-3.2) K/mm3 [place] # (Auto) 0.7 H (0.1-0.6) K/mm3 Eos # (Auto) 0.1 (0-0.3) K/mm3 Baso # (Auto) 0.0 (0.0-0.1) K/mm3 Abs Immat Gran (auto) 0.03 (0.00-0.031) K/mm3 Absolute Neuts (auto) 5.5 (1.3-6.7) K/mm3 Absolute Nucleated RBC 0.000 (0.0-0.012) K/mm3 Nucleated RBC % 0.0 (0.0-0.2) % PT 12.7 (11.1-14.7) Seconds INR 0.9 APTT 25.9 (22.3-36.8) Seconds Sodium 135 L (137-145) mmol/L Potassium 4.1 (3.4-5.0) mmol/L Chloride 102 (98-107) mmol/L Carbon Dioxide 20 L (22-30) mmol/L Anion Gap 13 H (4-12) mmol/L BUN 16 (9-20) mg/dL Creatinine 0.56 L (0.7-1.3) mg/dL Estim Creat Clear Calc Not Reportable Estimated GFR > 60 (59 - ) Glucose 143 H (65-110) mg/dL POC Capillary Glucose 120 H (65-105) mg/dl Calcium 8.8 (8.4-10.2) mg/dL Total Bilirubin 0.8 (0.2-1.3) mg/dL AST 24 (17-59) U/L ALT 17 (6-50) U/L Alkaline Phosphatase 107 (38-126) U/L Total Protein 7.0 (6.3-8.2) g/dL Albumin 3.9 (3.5-5.1) g/dL <Timothy You MD - Last Filed: 05/01/24 18:24> Imaging Data Radiologist's impression: ITS Impressions Aorta w/Runoff CTA 04/30/24 13:06 IMPRESSION: 1. 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 No significant stenosis of superior mesenteric artery. 2. Severe stenosis of right common femoral artery. 3. Total occlusion of right superficial femoral artery. 4. Moderate stenosis of proximal left internal iliac artery. 5. Moderate stenosis of left common femoral artery. 6. Total occlusion of left superficial femoral artery. <Virginia Regan PA-C - Last Filed: 05/02/24 02:49> Critical Care Time Critical Care Time Critical Care Time: No <Virginia Regan PA-C - Last Filed: 05/02/24 02:49> Discharge Plan Discharge Clinical Impression: Peripheral arterial disease Occlusion of stent of peripheral artery Qualifiers: Encounter type: initial encounter Qualified Code(s): T82.599A - Other mechanical complication of unspecified cardiac and vascular devices and implants, initial encounter <Virginia Regan PA-C - Last Filed: 05/02/24 02:49> Patient Disposition: Acute Care Hospital <Virginia Regan PA-C - Last Filed: 05/02/24 02:49> Condition: Stable <Virginia Regan PA-C - Last Filed: 05/02/24 02:49> Patient Language: Slovenian <Virginia Regan PA-C - Last Filed: 05/02/24 02:49> Prescriptions: No Action aspirin [Aspir-Low] 81 mg tablet,delayed release (DR/EC) 81 mg PO DAILY lisinopril 40 mg tablet 40 mg PO DAILY metoprolol succinate 100 mg tablet extended release 24 hr 100 mg PO DAILY gabapentin 100 mg capsule See Rx Instructions PO .COMPLEX Qty: 90 1RF Rx Instructions: 1 tab PO qhs, after 3-5 days may increase to TID tizanidine 2 mg tablet 2 mg PO TID PRN (Reason: muscle spasticity) Qty: 60 0RF insulin lispro protamin-lispro [Humalog Mix 75-25 KwikPen] 100 unit/mL (75-25) insulin pen 15 unit subcut BID 30 Days Qty: 9 3RF (DME) pen needle, diabetic [1st Tier Unifine Pentips] 32 gauge x 5/32 needle See Rx Instructions .Route Qty: 100 0RF Rx Instructions: to use with insilin pen twicve daily (DME) lancets [BD Ultra Fine Lancets] 33 gauge misc See Rx Instructions .ROUTE .MEDSUPPLY Qty: 300 3RF Rx Instructions: accuchks tid rosuvastatin 40 mg tablet 40 mg PO DAILY Qty: 90 0RF Jentadueto XR 5-1,000 mg tablet, IR - ER, biphasic 24hr 1 tablet PO DAILY Qty: 90 1RF Jardiance 25 mg tablet See Rx Instructions .ROUTE .COMPLEX Qty: 90 0RF Dose Instruction: TAKE 1 TABLET BY MOUTH DAILY Rx Instructions: TAKE 1 TABLET BY MOUTH DAILY <Virginia Regan PA-C - Last Filed: 05/02/24 02:49> Follow-up/Referrals: Nisa,Chanell Gaffney MD [Primary Care Provider] - <Virginia Regan PA-C - Last Filed: 05/02/24 02:49>
[2024-04-30 12:16] LABS: Basophils Percent Auto 0.5 % (0.2-1.2); Eosinophils Absolute Auto 0.1 K/mm3 (0-0.3); Hematocrit 50.6 % (42.0-52.0); Hemoglobin 17.3 g/dL (14.0-18.0); Immature Granulocyte Absolute 0.03 K/mm3 (0.00-0.031); Immature Granulocyte Percent A 0.4 % (0-0.5); Lymphocytes Absolute Auto 1.81 K/mm3 (0.9-3.2); Lymphocytes Percent Auto 22.2 % (18.3-44.2); Mean Corpuscular HGB Conc 34.2 g/dl (32-36); Mean Corpuscular Hemoglobin 31.9 pg (26-34); Mean Corpuscular Volume 93.2 fl (80-100); Mean Platelet Volume 9.7 fl (7.4-10.4); Monocytes Absolute Auto 0.7 K/mm3 (0.1-0.6); Monocytes Percent Auto 8.1 % (2.6-8.5); Neutrophils Absolute Auto 5.5 K/mm3 (1.3-6.7); Neutrophils Percent Auto 67.8 % (45.5-73.1); Platelet Count Result 269 k/mm3 (150-375); Red Blood Count 5.43 M/mm3 (4.6-6.20); Red Cell Distribution Width 12.6 % (11.5-14.5); White Blood Count 8.2 K/mm3 (4.5-10.0)
[2024-04-30 12:26] LABS: Alanine Aminotransferase 17 U/L (6-50); Albumin Level 3.9 g/dL (3.5-5.1); Alkaline Phosphatase 107 U/L (38-126); Anion Gap 13 mmol/L (4-12); Aspartate Amino Transferase 24 U/L (17-59); Bilirubin,Total 0.8 mg/dL (0.2-1.3); Blood Urea Nitrogen 16 mg/dL (9-20); Calcium 8.8 mg/dL (8.4-10.2); Carbon Dioxide 20 mmol/L (22-30); Chloride 102 mmol/L (98-107); Estimated Glomerular Filt Rate > 60; Glucose 143 mg/dL (65-110); Potassium 4.1 mmol/L (3.4-5.0); Sodium 135 mmol/L (137-145)
[2024-04-30 12:54] LABS: INR 0.9; Prothrombin Time 12.7 Seconds (11.1-14.7)
[2024-04-30 12:55] LABS: Partial Thromboplastin Time 25.9 Seconds (22.3-36.8)
--- NOTE | 2024-04-30 15:22 | PC.NURSE ---
Patient requesting update in plan of care. Provider awaiting call back for likely transfer. Pt to remain NPO, patient aware. Call light in reach
--- NOTE | 2024-04-30 17:24 | PC.NURSE ---
Dinner ordered for patient. Continues to await consult and potential transfer. OK to eat per provider. Patient aware of delay in care. Pt remains on full monitor, VS as charted. Call light in reach.
[2024-04-30] MEDS: MORPHINE SULFATE (*CRX) 4 MG/ML INJ IV PUSH (18:08)
[2024-04-30] MEDS: ONDANSETRON INJ 4 MG/2 ML VIAL IV PUSH (18:08)
[2024-04-30 18:21] LABS: Glucose Point of Care 120 mg/dl (65-105)
--- NOTE | 2024-04-30 18:22 | PC.NURSE ---
Patient medicated as per mar with zofran and morphine. Patient provided dinner tray. POC BG 120 prior to meal.
--- NOTE | 2024-04-30 20:11 | PC.NURSE ---
Received report on patient -assumed care. Patient alert and oriented, asking for crackers and peanut butter-given with OK by
--- NOTE | 2024-04-30 23:19 | PC.NURSE ---
Report to Caitlin MORENO
[2024-05-01] VITALS (10 sets, daily range): BP systolic 137–171; BP diastolic 62–85; PULSE 72–92; RESP 13–19; TEMP 36.4; O2SAT 95–100
[2024-05-01] MEDS: MORPHINE SULFATE (*CRX) 4 MG/ML INJ IV PUSH ×2 (13:42→22:11)
--- NOTE | 2024-05-01 21:59 | PC.NURSE ---
PT RECEIVED BED PLACEMENT AT [facility]. ROOM 428. [facility] CONTACTED FOR TRANSPORT. ETA 2300.
== END 2024-05-01 22:31 | disposition short-term general hospital (02) ==
PROVIDERS: Emergency Provider Physician Assistant; PCP Family Medicine
DX: I73.9 Peripheral vascular disease, unspecified (principal); T82.599A Other mechanical complication of unspecified cardiac and vascular devices and implants, initial encounter; Z79.82 Long term (current) use of aspirin; I10 Essential (primary) hypertension; E11.9 Type 2 diabetes mellitus without complications; Z79.4 Long term (current) use of insulin; I25.10 Atherosclerotic heart disease of native coronary artery without angina pectoris; E78.2 Mixed hyperlipidemia; Z87.891 Personal history of nicotine dependence
CPT/HCPCS: 36415; 75635; 80053; 82948; 85025; 85610; 85730; 96374; 96375; 96376; 99285; J2270; J2405; Q9967

== ENCOUNTER 2024-09-12 15:04 | Emergency (ER) | payer MEDICARE, SELFPAY ==
[2024-09-12 15:16] VITALS: BP 119/59; PULSE 108; RESP 16; TEMP 37.1; O2SAT 97
--- NOTE | 2024-09-12 15:22 | ED.SKABFB ---
HPI - Skin/Abscess/Foreign Bdy General Chief complaint: Skin/Abscess/Foreign Body Stated complaint: Right Foot Skin Issues Time Seen by Provider: 09/12/24 15:22 Source: patient Mode of arrival: ambulatory Limitations: no limitations History of Present Illness HPI narrative: 64 yo M with hx of diabetes presents with pain to R 4th toe for about 1 wk. Pt's daughter concerned it's infected. Daughter states pt had recent job change and change in insurance. Was out of medications for about a month. Just got new insurance. Back on high blood pressure meds. Diabetes medication is back ordered and will be filled Saturday. PCP did no send in prescription for insulin as she did not prescribe it. Was prescribed by a specialist that daughters states did a recent surgery. PCP wanted to see pt before giving refill. Pt has BS monitor at home but has not checked blood sugar. States is feeling fine other than R 4th toe pain. All systems reviewed and negative except as noted above. Related Data Home Medications ?Medication ?Instructions ?Recorded ?Confirmed ?Last Taken ?Type lisinopril 40 mg tablet 40 mg PO DAILY 03/03/19 05/01/24 04/29/24 History metoprolol succinate 100 mg 100 mg PO DAILY 03/03/19 05/01/24 04/29/24 History tablet,extended release 24 hr ezetimibe 10 mg tablet mg 09/12/24 Unknown History Allergies Allergy/AdvReac Type Severity Reaction Status Date / Time No Known Allergies Allergy Verified 09/12/24 15:30 Review of Systems Review of Systems: CONSTITUTIONAL: Denies fever, chills, or sweats. EYES: Denies visual changes, redness, or discharge. ENT: Denies rhinorrhea, congestion, sore throat, or otalgia. CARDIOVASCULAR: Denies chest pain, palpitations, or edema. RESPIRATORY: Denies cough or dyspnea. GASTROINTESTINAL: Denies abdominal pain, nausea, vomiting, or diarrhea. GENITOURINARY: Denies dysuria or hematuria. SKIN: Denies rash or itching. reports pian to R 4th toe MUSCULOSKELETAL: Denies back pain, joint pain, or myalgia. NEUROLOGIC: Denies headache, numbness, or weakness. PSYCHIATRIC: Denies anxiety or depression. All other systems reviewed are negative, except as documented in HPI. [facility] Past Medical History Medical History CAD, multiple vessel Carotid occlusion, right Claudication of both upper extremities due to atherosclerosis Diabetic angiopathy Diabetic neuropathy HTN (hypertension), benign Intermittent claudication of both lower extremities due to atherosclerosis prison (current) use of insulin Mixed hyperlipidemia Neuropathic pain of both feet PAD (peripheral artery disease) Tobacco use disorder Type 2 diabetes mellitus with hyperglycemia Type 2 diabetes mellitus with hyperglycemia, with long-term current use of insulin Type 2 diabetes mellitus with other circulatory complications Type 2 diabetes mellitus with proteinuria Surgical History Surgical History History of angioplasty of peripheral vessel L superficial femoral artery S/P CABG x 5 Family History Family History Father Hypertension Family history of diabetes mellitus in first degree relative Mother Family history of heart disease in male family member before age 55, Onset Age: 29 Patient's mother is Other Diabetes mellitus Family history of elevated blood lipids Social History Social History (Updated 04/28/21 @ 15:51 by Madelin Gregory) Social History: Single Smoking status: Former smoker Tobacco type: cigarettes Second hand tobacco smoke exposure: No Smoking end date: 03/11/15 Alcohol intake: never Substance use: never Substance use type: does not use Living arrangements: with family Occupation/Education: occupation Gender identity (if verbalized by the patient): Male Sexual Orientation (if Verbalized by the Patient): Straight or Heterosexual Comments At time of signature, agree with nursing past medical, surgical, social and family history. There is no relevant family history pertinent to the presenting complaint. Exam Narrative: GENERAL: This is a well-nourished, well-developed patient, in no apparent distress. HEAD: normocephalic, atraumatic. EYES: PERRL. Sclera clear/white. Vision is grossly intact. EARS: External ears normal NOSE: External nose normal NECK: Neck supple, non-tender without lymphadenopathy, masses or thyromegaly. CARDIOVASCULAR: Regular rate and rhythm without murmurs, gallops, or rubs. RESPIRATORY: Clear to auscultation. Breath sounds equal bilaterally. No wheezes, rales, or rhonchi. SKIN: warm, Dry, intact with no suspicious lesions or rash, good texture and turgor. NEURO: awake, alert, and oriented to person, place and time. There were no obvious focal neurologic abnormalities. EXTREMITIES: No joint tenderness, effusion. pt has beginning stages of diabetic ulcer to lateral aspect of R 4th toe. approx. 1 cm diameter ulcer erythmatous/purplish. no drainge. tender on palpation. 5th toe is pushing up against 4th toe. Good color, normal temp. no necrosis or odor. Course Course Level of Care: Express Care Visit Vital Signs Vital signs: Vital Signs Temperature 37.1 C 09/12/24 15:16 Pulse Rate 108 H 09/12/24 15:16 Respiratory Rate 16 09/12/24 15:16 Blood Pressure 119/59 L 09/12/24 15:16 Pulse Oximetry 97 09/12/24 15:16 Oxygen Delivery Room Air 09/12/24 15:16 Temperature 37.1 C 09/12/24 15:16 Pulse Rate 108 H 09/12/24 15:16 Respiratory Rate 16 09/12/24 15:16 Blood Pressure 119/59 L 09/12/24 15:16 Pulse Oximetry 97 09/12/24 15:16 Oxygen Delivery Room Air 09/12/24 15:16 Reviewed MDM - Skin/Abscess/Foreign Bdy MDM Narrative Medical decision making narrative: pt BS 421 today. has not been on insulin for approx. 1 month. needs new script. Jendadueto back ordered. Will be filled saturday. pt states feels fine. needs antibiotic for toe. 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 Will check BS daily. recommend cushion between 4th and 5th toe to allow healing/take pressure off skin. has appt with PCP 09/28. Recommend he call saturday and try to be sooner. Recommend wound care for diabetic ulcer. 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 Lab Data Labs: Lab Results 09/12/24 Range/Units 15:33 POC Capillary Glucose 421 H (65-105) mg/dl Discharge Plan Discharge Clinical Impression: Diabetic toe ulcer, Acute hyperglycemia, Encounter for medication refill Patient Disposition: Home Condition: Stable Instructions: Antibiotic Form, Foot Ulcers in a Person with Diabetes (ED) Additional Instructions: Take antibiotic as prescribed until gone. Cushion between toes to prevent pressure sores. 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 Check your blood sugar daily. Call provider and see if you can move up upcoming appointment. You will need wound care for diabetic ulcer. If you have vomiting, blood sugar over 500, fever, discoloration or cold sensation to right 4th toe go to the ER. Patient Language: [place] Prescriptions: New insulin lispro protamin-lispro [Humalog Mix 75-25 KwikPen] 100 unit/mL (75-25) insulin pen 15 unit subcut BID Qty: 15 0RF cephalexin 500 mg capsule 500 mg PO QID 7 Days Qty: 28 0RF No Action ezetimibe 10 mg tablet lisinopril 40 mg tablet 40 mg PO DAILY metoprolol succinate 100 mg tablet extended release 24 hr 100 mg PO DAILY insulin lispro protamin-lispro [Humalog Mix 75-25 KwikPen] 100 unit/mL (75-25) insulin pen 15 unit subcut BID 30 Days Qty: 9 3RF (DME) pen needle, diabetic [1st Tier Unifine Pentips] 32 gauge x 5/32 needle See Rx Instructions .Route Qty: 100 0RF Rx Instructions: to use with insilin pen twicve daily (DME) lancets [BD Ultra Fine Lancets] 33 gauge misc See Rx Instructions .ROUTE .MEDSUPPLY Qty: 300 3RF Rx Instructions: accuchks tid Jentadueto XR 5-1,000 mg tablet, IR - ER, biphasic 24hr 1 tablet PO DAILY Qty: 90 1RF Follow-up/Referrals: Chanell Paula MD [Primary Care Provider] - Time of Disposition: 15:45
== END 2024-09-12 15:53 | disposition home or self-care (01) ==
PROVIDERS: Emergency Provider Nurse Practitioner Family; PCP Family Medicine
DX: L97.519 Non-pressure chronic ulcer of other part of right foot with unspecified severity (principal); E11.621 Type 2 diabetes mellitus with foot ulcer; E11.65 Type 2 diabetes mellitus with hyperglycemia; Z79.4 Long term (current) use of insulin; Z79.85 Long-term (current) use of injectable non-insulin antidiabetic drugs; Z79.84 Long term (current) use of oral hypoglycemic drugs; I25.10 Atherosclerotic heart disease of native coronary artery without angina pectoris; I65.21 Occlusion and stenosis of right carotid artery; I10 Essential (primary) hypertension; E11.40 Type 2 diabetes mellitus with diabetic neuropathy, unspecified; E11.51 Type 2 diabetes mellitus with diabetic peripheral angiopathy without gangrene; Z95.1 Presence of aortocoronary bypass graft; Z98.62 Peripheral vascular angioplasty status; Z87.891 Personal history of nicotine dependence
CPT/HCPCS: 82948; 99211; G0463